=== PATIENT | female | born 1975 | race Caucasian/White ===

== ENCOUNTER → 2017-04-23 | Outpatient (CLI) | payer BC ==
--- NOTE | 2017-04-23 09:04 | MM ---
Reason for exam: screening (asymptomatic). Baseline mammogram. Physical Findings: Nurse Summary: A 1cm nodule in the left breast at 4 o'clock (nurse rm). MG Screening Mammo w CAD Bilateral CC and MLO view(s) were taken. Prior study comparison: March 03, 2004, bilateral diagnostic mammogram. The breast tissue is almost entirely fat. There is no discrete abnormality. No significant new findings when compared with previous films. These results were verbally communicated with the patient and result sheet given to the patient on 04/23/17. ASSESSMENT: Incomplete: need additional imaging evaluation, BI-RAD 0 RECOMMENDATION: Ultrasound of the left breast. Palpable.
--- NOTE | 2017-04-23 09:07 | USB ---
Reason for exam: additional evaluation requested from abnormal screening. US Breast Limited LT Left breast demonstrates no cystic or solid lesion seen. ASSESSMENT: Negative, BI-RAD 1 RECOMMENDATION: Routine screening mammogram of both breasts in 1 year.
== END | disposition home or self-care (01) ==
LOC: RADMAMWWP 07:05
PROVIDERS: ATTEND Family Medicine
DX: Z12.31 Encounter for screening mammogram for malignant neoplasm of breast (principal); R92.8 Other abnormal and inconclusive findings on diagnostic imaging of breast
CPT/HCPCS: 76642; G0202

== ENCOUNTER → 2017-06-08 | Outpatient (CLI) | payer BC ==
--- NOTE | 2017-06-09 09:04 | CONS ---
Reason for the consultation is sleep apnea. A 42-year-old female patient, morbidly obese with no known history of bronchial asthma, coming in for ARABELLA evaluation. Recently, she has been noticed to be very tired and fatigued and she has an [place] score of 16. She is snoring. She is having excessive daytime sleepiness during the day despite averaging around 9 hours of sleep. She goes to bed around midnight, wakes up 9 a.m. in the morning, sometimes takes her more than 30 minutes to an hour to fall asleep. She is waking up very tired and she is having problems with day to day arousals and alertness. She has gained a total of 60 to 80 pounds after she quit smoking approximately 2-1/2 years ago. No chronic pain. No nocturnal heartburn, no nocturnal chest pain. Occasionally, she has coughing jags that wakes her up from sleep. No restlessness in her lower extremities. PAST MEDICAL HISTORY: 1. Asthma. 2. Obesity. 3. Hypertension. 4. Generalized anxiety disorder. 5. Degenerative arthritis. Past surgical history includes tonsillectomy, D&C, tendon surgery on her foot, 2 C-sections and resection of Bartholin glands. Allergies are not known. Outpatient medications list include Zyrtec, ( ), Symbicort 160/4.5 two puffs twice a day, Spiriva inhalation a day. She is also on Lipitor 20 mg p.o. q. daily, Lexapro 20 mg p.o. q. daily, Singular 10 mg p.o. q. day, hydrochlorothiazide 25 mg p.o. q. day, Xanax on a p.r.n. basis, Zosyn 0.25 mg q. day. FAMILY HISTORY: Father has complications of renal failure and he passed, and he also had hypertension. Mother of complications of lung disease including COPD and respiratory failure. No sleep apnea in the family. REVIEW OF SYSTEMS: A 12-point review of systems was done, positive points as mentioned above. HISTORY OF PRESENT ILLNESS: BP is 141/94, pulse 68, respirations 16, temperature 97.6, saturation 95% on room air, weight 367, height is 5, 7, neck size 18-3/4, BMI is 66.6. GENERAL APPEARANCE: Calm, comfortable. HEENT: Short neck, crowing of the posterior pharynx. There is no goiter or neck masses, Mallampati class IV. LUNGS: Diminished at the bases, otherwise clear. Heart sounds are regular rate and rhythm, normal S1, S2, no murmurs. ABDOMEN: Obese, soft, nontender, liver and spleen cannot be palpated. EXTREMITIES: Edema, there is no cyanosis or clubbing. IMPRESSION: 1. Obstructive sleep apnea, suspected clinically under investigation. 2. Chronic bronchial asthma. 3. Morbid obesity, BMI of 56. 4. Hypersomnia, [place] score of 16. 5. Chronic allergic rhinitis. 6. Chronic anxiety. 7. Hypertension. 8. Hyperlipidemia. PLAN: 1. Weight loss. 2. Proceed with screening polysomnogram and decide on treatment accordingly. ABELARDOD
== END ==
LOC: SLEEP 15:09
PROVIDERS: ATTEND Internal Medicine Critical Care Medicine
DX: G47.33 Obstructive sleep apnea (adult) (pediatric) (principal); E66.01 Morbid (severe) obesity due to excess calories; G47.10 Hypersomnia, unspecified; F41.9 Anxiety disorder, unspecified; I10 Essential (primary) hypertension; E78.5 Hyperlipidemia, unspecified; J44.9 Chronic obstructive pulmonary disease, unspecified; Z68.43 Body mass index [BMI] 50.0-59.9, adult; Z79.899 Other long term (current) drug therapy
CPT/HCPCS: 99211

== ENCOUNTER → 2017-11-17 | Outpatient (CLI) | payer BC | END | disposition home or self-care (01) | LOC: LABWHC1 16:11 | PROVIDERS: ATTEND Internal Medicine Critical Care Medicine | DX: J45.909 Unspecified asthma, uncomplicated (principal) | CPT/HCPCS: 36415; 82785; 85008 ==

== ENCOUNTER → 2017-12-07 | Outpatient (CLI) | payer BC ==
--- NOTE | 2017-12-07 20:45 | PN ---
PROGRESS NOTE DATE OF SERVICE: 12/07/2017. HISTORY: This is a patient who is coming in for a compliancy check regarding ARABELLA treatment. The patient has severe symptomatic obstructive sleep apnea with an AHI of 51. The patient was given CPAP therapy. Unfortunately the patient was unable to bring his CPAP machine today with [facility]. However, she claims that she has been using more than 6 hours of CPAP every night and she is benefitting from the treatment and she is waking up much more alert and refreshed during the day. She is on a CPAP pressure of 12 cm of water. I am going to download her compliance data from her machine at a later stage. Otherwise she has no specific complaints. She is using a Simplus full face mask. She is trying to lose weight and she is benefitting from the treatment. PHYSICAL EXAMINATION: VITAL SIGNS: BP is 137/72, pulse 68, respirations 16, temperature 97.6 weight is 385. Saturation 99% on room air. GENERAL: Appears calm and comfortable. HEENT: Head is atraumatic, normocephalic. NECK: Supple. There is no JVD. No goiter or neck masses. Mallampati class 4. LUNGS: Clear to auscultation. HEART: Heart sounds are regular rate and rhythm. Normal S1, S2. No S3, S4. No murmurs. ABDOMEN: Soft, nontender. No organomegaly. EXTREMITIES: No edema. No cyanosis or clubbing. IMPRESSION: 1. Symptomatic obstructive sleep apnea with an AHI of 31, currently on CPAP pressure of 12. The patient is benefiting from the treatment and has no specific complaints. 2. Obesity with a BMI of 57. 3. Chronic hypersomnia, improving. 4. Chronic anxiety. 5. Allergic rhinitis. 6. Hypertension. 7. Hyperlipidemia. PLAN: 1. Proceed with CPAP therapy at same level of pressure. 2. Download compliancy data. 3. Encourage weight loss. 4. No adjustments until compliancy data has been reviewed. 5. See me back in follow up for further recommendations. For now, the patient is benefiting from the treatment and if the compliancy data is appropriate, the patient will be let go, to be seen in a year's time. MMODL / IJN: [id number] /
== END | disposition home or self-care (01) ==
LOC: SLEEP 16:52
PROVIDERS: ATTEND Internal Medicine Critical Care Medicine
DX: G47.33 Obstructive sleep apnea (adult) (pediatric) (principal); E66.9 Obesity, unspecified; F41.9 Anxiety disorder, unspecified; J30.9 Allergic rhinitis, unspecified; I10 Essential (primary) hypertension; E78.5 Hyperlipidemia, unspecified; Z99.89 Dependence on other enabling machines and devices; Z68.43 Body mass index [BMI] 50.0-59.9, adult

== ENCOUNTER → 2018-01-19 | Outpatient (CLI) | payer BC | END | disposition home or self-care (01) | LOC: LABWHC1 09:58 | PROVIDERS: ATTEND Family Medicine | DX: Z01.818 Encounter for other preprocedural examination (principal) | CPT/HCPCS: 36415; 93005 ==

== ENCOUNTER 2018-04-18 10:01 | Emergency (ER) | payer BC ==
[2018-04-18 10:08] VITALS: RESP 18
[2018-04-18] MEDS ORDERED: ASPIRIN 81 MG PO STA (10:36)
[2018-04-18] MEDS ORDERED: IPRATROPIUM-ALBUTEROL 3 ML NEB INHALATION STA (10:36)
--- NOTE | 2018-04-18 10:42 | ED ---
Chest Pain HPI - General Chief Complaint: Chest Pain Stated Complaint: abn labs Time Seen by Provider: 04/18/18 10:16 Source: patient Mode of arrival: wheelchair Limitations: no limitations - History of Present Illness Initial Comments: Patient is a 42-year-old female who presents with a chief complaint of chest pain, fatigue, shortness of breath. Patient states that the symptoms have been going on for several months, gradually getting worse. She was sent to the emergency department by her primary care physician as her symptoms were concerning for cardiac etiology. Patient cannot identify an inciting incident. Aggravating factors include exertion, and lying flat. Alleviating factors are rest. The patient has a significant history of high cholesterol, and asthma. The patient is a family history of early cardiac disease in her mother and father. Her sister had a fatal PA at the age of 58. Timing is constant. - Related Data Home Medications Medication Instructions Recorded Confirmed ALPRAZolam [Xanax] 0.5 mg PO Q8H PRN 02/24/16 04/18/18 Albuterol Nebulized [Ventolin 2.5 mg INHALATION RT-Q6H PRN 02/24/16 04/18/18 Nebulized] Albuterol Sulfate [Ventolin HFA] 2 puff INHALATION RT-Q6H PRN 02/24/16 04/18/18 Aspirin EC [Ecotrin] 325 mg PO HS 02/24/16 04/18/18 Montelukast [Singulair] 10 mg PO HS 02/24/16 04/18/18 buPROPion HCL [Bupropion HCl Sr] 150 mg PO BID 02/24/16 04/18/18 Atorvastatin [Lipitor] 20 mg PO HS 04/18/18 04/18/18 Beclomethasone Dipropionate [Qvar 1 puff INHALATION RT-BID 04/18/18 04/18/18 Redihaler] Budesonide-Formot 160-4.5 Mcg 2 puff INHALATION RT-BID 04/18/18 04/18/18 [Symbicort 160-4.5 Mcg Inhaler] Cetirizine HCl [Zyrtec] 10 mg PO DAILY 04/18/18 04/18/18 Doxazosin [Cardura] 2 mg PO DAILY 04/18/18 04/18/18 Furosemide [Lasix] 20 mg PO DAILY 04/18/18 04/18/18 Omeprazole 20 mg PO DAILY 04/18/18 04/18/18 Tiotropium [place] [Spiriva] 1 cap INHALATION RT-DAILY 04/18/18 04/18/18 Allergies Allergy/AdvReac Type Severity Reaction Status Date / Time No Known Allergies Allergy Verified 04/18/18 11:54 Review of Systems ROS Statement: Those systems with pertinent positive or pertinent negative responses have been documented in the HPI. ROS Other: All systems not noted in ROS Statement are negative. Cardiovascular: Reports: chest pain, dyspnea on exertion Endocrine: Reports: fatigue Past Medical History Past Medical History: Asthma History of Any Multi-Drug Resistant Organisms: None Reported Past Surgical History: Section, Hysterectomy, Orthopedic Surgery, Tonsillectomy Past Psychological History: Anxiety Smoking Status: Former smoker Past Alcohol Use History: None Reported Past Drug Use History: None Reported General Exam Limitations: no limitations General appearance: alert, in no apparent distress Head exam: Present: atraumatic, normocephalic Eye exam: Present: normal appearance ENT exam: Present: normal exam Neck exam: Present: normal inspection Respiratory exam: Present: decreased breath sounds, other (Patient is decreased breath sounds and a bronchospastic cough. There are no wheezes appreciated however exam is limited secondary to body habitus.) Cardiovascular Exam: Present: regular rate, normal rhythm GI/Abdominal exam: Present: soft. Absent: distended, tenderness Rectal exam: Present: deferred Extremities exam: Present: normal inspection, pedal edema (2+ pitting edema b/l ) Back exam: Present: normal inspection Neurological exam: Present: alert, oriented X3 Psychiatric exam: Present: normal affect, normal mood Skin exam: Present: warm, dry, intact Course Vital Signs 04/18/18 04/18/18 04/18/18 10:06 12:20 12:42 Temperature 97.8 F Pulse Rate 55 L 64 61 Respiratory 18 18 Rate Blood Pressure 165/73 145/65 O2 Sat by Pulse 100 97 Oximetry 04/18/18 04/18/18 04/18/18 13:09 13:47 16:53 Temperature 97.5 F L Pulse Rate 79 72 113 H Respiratory 18 18 Rate Blood Pressure 135/61 119/44 O2 Sat by Pulse 94 L 94 L Oximetry 04/18/18 17:36 Temperature 97.5 F L Pulse Rate 113 H Respiratory 18 Rate Blood Pressure 119/44 O2 Sat by Pulse 94 L Oximetry Chest Pain MDM - MDM Patient presents with a chief complaint of chest pain and shortness of breath. On initial evaluation, vital signs are stable, patient is in no acute distress. Patient is perk negative therefore making PE and unlikely diagnosis. History and physical examination concerning for congestive heart failure. Patient will be evaluated with cardiac workup. EKG performed at 10:14 AM shows sinus bradycardia with a rate of 58 bpm. EKG is otherwise unremarkable. Patient given aspirin in the emergency department. 6:20PM Lab evaluation of this patient is unremarkable. troponins are negative x 2, CXR unremarkable. at this time, patient has a heart score of 3 and after shared decision making, the patient would like to follow up outpatient for further work up. the patient was instructed to follow up with primary care in 1 -2 days, or return to the ED if new or concerning symptoms arise. the patient verbalizes understanding. patient left ED in no distress and stable. - PERC Rule Heart Rate < 100: (0) No g: (0) No No Prior History pf DVT/PE: (0) No No Recent Trauma or Surgery: (0) No Hemoptysis: (0) No No Exogenous Estrogen: (0) No No Clinical Signs Suggesting DVT: (0) No Disposition Clinical Impression: Chest pain Disposition: HOME SELF-CARE Condition: Good Instructions: Chest Pain (ED) Is patient prescribed a controlled substance at d/c from ED?: No Referrals: Saulo Gudino DO [Primary Care Provider] - 1-2 days
[2018-04-18 12:21] LABS: Anion Gap 14 mmol/L; Blood Urea Nitrogen 13 mg/dL (7-17); Calcium 9.4 mg/dL (8.4-10.2); Carbon Dioxide 25 mmol/L (22-30); Chloride 104 mmol/L (98-107); Glucose 84 mg/dL (74-99); Potassium 4.1 mmol/L (3.5-5.1); Sodium 143 mmol/L (137-145)
[2018-04-18 12:27] LABS: Basophils % (A) 0 %; Eosinophils # (A) 0.1 k/uL (0-0.7); Eosinophils % (A) 1 %; HCT 34.7 % (34.0-46.0); Hypochromasia Slight; Lymphocytes # (A) 1.5 k/uL (1.0-4.8); Lymphocytes % (A) 20 %; MCH 24.7 pg (25.0-35.0); MCHC 31.7 g/dL (31.0-37.0); Mean Platelet Volume 8.3; Monocytes # (A) 0.3 k/uL (0-1.0); Monocytes % (A) 5 %; Neutrophils # (A) 5.4 k/uL (1.3-7.7); Neutrophils % (A) 73 %; Platelet Count 174 k/uL (150-450); Poikilocytosis Slight; RBC 4.45 m/uL (3.80-5.40); RDW 15.1 % (11.5-15.5); WBC 7.5 k/uL (3.8-10.6)
--- NOTE | 2018-04-18 12:28 | XR ---
EXAMINATION TYPE: XR chest 2V DATE OF EXAM: 04/18/2018 COMPARISON: 11/17/2017 HISTORY: Chest pain, shortness of breath and large 70 edema with history of asthma TECHNIQUE: Frontal and lateral views of the chest are obtained. FINDINGS: There is no focal air space opacity, pleural effusion, or pneumothorax seen. There is mini mal platelike left midlung subsegmental peripheral atelectasis. The cardiac silhouette size is withi n normal limits. The osseous structures are intact. Mild acromioclavicular arthropathy is noted devon aterally. IMPRESSION: Minimal left midlung platelike subsegmental atelectasis with no other acute cardiopulmon elisabet process.
[2018-04-18 13:49] VITALS: TEMP 97.5
[2018-04-18 16:55] VITALS: BP 119/44; PULSE 113
== END 2018-04-18 17:36 | disposition home or self-care (01) ==
LOC: EC 10:01
DX: R07.9 Chest pain, unspecified (principal); R06.02 Shortness of breath; R00.1 Bradycardia, unspecified; R53.83 Other fatigue; R60.0 Localized edema; E78.00 Pure hypercholesterolemia, unspecified; J45.909 Unspecified asthma, uncomplicated; F41.9 Anxiety disorder, unspecified; Z87.891 Personal history of nicotine dependence; Z82.49 Family history of ischemic heart disease and other diseases of the circulatory system; Z79.51 Long term (current) use of inhaled steroids; Z79.82 Long term (current) use of aspirin; Z79.899 Other long term (current) drug therapy
CPT/HCPCS: 36415; 71046; 80048; 83880; 84484; 85025; 93005; 94640; 99285

== ENCOUNTER → 2018-07-28 | Outpatient (CLI) | payer BC ==
[2018-07-28 15:08] VITALS: BP 135/60; PULSE 63; RESP 14; TEMP 99.2; BMI 58.4
--- NOTE | 2018-07-28 15:36 | P.HPBAR ---
Bariatric H&P - History & Physicial H&P Date: 07/28/18 History & Physicial: Visit/CC: bariatric consult (RnY) Patient initial contact: Initial weight: 183.841 kg Initial weight in pounds: 405.30 Height: 5 ft 8 in Initial BMI: 61.6 Last weight: Current weight: 174.361 kg Current weight in pounds: 384.40 Current BMI: 58.4 [place] body weight (based on NIH guidelines): 63.503 kg Excess body weight loss: 7.8% The patient is a 43 year-old F who presents for Bariatric Assessment. HPI: She comes into looking for the gastric bypass. Highest weight is 403 to 405 pounds now a few months ago. Five years ago, she had weighed over 350 pounds. In the past she was smoking and now has quit. She an aunt with severe obesity. She has sleep apnea, and is on Lasix for blood pressure and for swelling in the legs. She has history of high cholesterol. Her gallbladder has been removed. No food allergies. She reports GERD. No stomach or esophageal cancer. No inflammatory bowel disease. She reports lower back pain, hip pain, knee pain including feet. She has chronic lower leg swelling and plantar fasciitis. ABDOMEN: MS: 2+ edema. PLAN: 1. [facility] [place] 2. Food diary journal present 3. Medical weight loss described Past Medical History Past Medical History: Asthma, Hyperlipidemia Additional Past Medical History / Comment(s): 07/28/18 currently seeing box toe flanger stitchdowns for "random, quick stabbing chest pain;" patient states that she believes box toe flanger stitchdowns, Dr. Williamson, is leaning toward believing that these pains are asthma related History of Any Multi-Drug Resistant Organisms: None Reported Past Surgical History: Section, Hysterectomy, Orthopedic Surgery, Tonsillectomy Past Anesthesia/Blood Transfusion Reactions: Motion Sickness, Postoperative Nausea & Vomiting (PONV) Additional Past Anesthesia/Blood Transfusion Reaction / Comm: Patient states she has had 2 episodes of "spinal headaches" following 2 separate epidurals. No history of blood transfusion to date Past Psychological History: Anxiety Smoking Status: Former smoker Past Alcohol Use History: None Reported Past Drug Use History: None Reported - Past Family History Father Family Medical History: Hypertension Additional Family Medical History / Comment(s): at age 67 from hypertensive damage to organs Mother Family Medical History: Hypertension Additional Family Medical History / Comment(s): at age 69 Sister(s) Family Medical History: Myocardial Infarction ([place]) Additional Family Medical History / Comment(s): alcoholism, at age 57 from " maker" heart attack Brother(s) Family Medical History: Coronary Artery Disease (CAD) Additional Family Medical History / Comment(s): alcoholism, drug addiction, carotid artery clogged 100% and 90% at age 58 Surgical - Exam Vital Signs Temp Pulse Resp BP 99.2 F 63 14 135/60 07/28/18 14:48 07/28/18 14:48 07/28/18 14:48 07/28/18 14:48 Bariatric Checklist Checklist: Plan: Checklist: EGD: 1. Hiatal hernia: 2. H. Pylori: HgbA1c: Vitamin D: Smoking: Former smoker Primary care physician referral: marnie Gudino Psychiatry clearance: Cardiology clearance: Sleep study: Diet journal: VTE risk score: VTE risk level: Rehab needs at discharge:
== END ==
LOC: BARWHC3 14:32
PROVIDERS: ATTEND Surgery Plastic and Reconstructive Surgery
DX: K21.9 Gastro-esophageal reflux disease without esophagitis (principal); M54.5 Low back pain; M25.559 Pain in unspecified hip; M25.569 Pain in unspecified knee; R22.40 Localized swelling, mass and lump, unspecified lower limb; M72.2 Plantar fascial fibromatosis
CPT/HCPCS: 99211

== ENCOUNTER 2018-09-20 12:17 | Emergency (ER) | payer BC ==
[2018-09-20] MEDS ORDERED: methylPREDNISolone SOD SUCCI 125 MG/2 ML VIAL IV STA (12:39)
[2018-09-20] MEDS ORDERED: IPRATROPIUM 0.5 MG/2.5 ML NEBU INHALATION STA (12:39)
[2018-09-20] MEDS ORDERED: ALBUTEROL NEBULIZED 2.5 MG/3 ML INHALATION STA (12:39)
--- NOTE | 2018-09-20 12:58 | ED ---
General Adult HPI - General Chief complaint: Shortness of Breath Stated complaint: Asthma attack Time Seen by Provider: 09/20/18 12:35 Source: patient, RN notes reviewed, old records reviewed Mode of arrival: ambulatory Limitations: no limitations - History of Present Illness Initial comments: 43-year-old female with history of asthma presents with 10 days of cough and dyspnea. Patient states she has been on steroids and antibiotics for the past 8 days with no improvement in her symptoms. She does have a long history of asthma and is on multiple inhalers at this time. Symptoms have failed to improve. Denies fever or chills. Cough is dry. She does have anterior chest pain which is worse with cough. - Related Data Home Medications Medication Instructions Recorded Confirmed Montelukast [Singulair] 10 mg PO HS 02/24/16 09/20/18 buPROPion HCL [Bupropion HCl Sr] 150 mg PO BID 02/24/16 09/20/18 Budesonide-Formot 160-4.5 Mcg 2 puff INHALATION RT-BID 04/18/18 09/20/18 [Symbicort 160-4.5 Mcg Inhaler] Doxazosin [Cardura] 2 mg PO DAILY 04/18/18 09/20/18 Furosemide [Lasix] 20 mg PO BID 04/18/18 09/20/18 Omeprazole 20 mg PO DAILY 04/18/18 09/20/18 Tiotropium [place] [Spiriva] 1 cap INHALATION RT-DAILY 04/18/18 09/20/18 Beclomethasone Dipropionate [Qvar 2 puff INHALATION RT-BID 09/20/18 09/20/18 80 mcg] Escitalopram Oxalate [Lexapro] 20 mg PO DAILY 09/20/18 09/20/18 Ibuprofen [Motrin Ib] 800 mg PO BID PRN 09/20/18 09/20/18 Potassium Chloride ER [K-Dur 10] 10 meq PO DAILY 09/20/18 09/20/18 Previous Rx's Medication Instructions Recorded Albuterol Nebulized [Ventolin 2.5 mg INHALATION Q4H #60 nebu 09/20/18 Nebulized] predniSONE 50 mg PO DAILY #5 tab 09/20/18 Allergies Allergy/AdvReac Type Severity Reaction Status Date / Time No Known Allergies Allergy Verified 09/20/18 13:45 Review of Systems ROS Statement: Those systems with pertinent positive or pertinent negative responses have been documented in the HPI. ROS Other: All systems not noted in ROS Statement are negative. Past Medical History Past Medical History: Asthma, Hyperlipidemia Additional Past Medical History / Comment(s): 07/28/18 currently seeing pulp mill operator for "random, quick stabbing chest pain;" patient states that she believes pulp mill operator, Dr. Williamson, is leaning toward believing that these pains are asthma related History of Any Multi-Drug Resistant Organisms: None Reported Past Surgical History: Section, Hysterectomy, Orthopedic Surgery, Tonsillectomy Past Anesthesia/Blood Transfusion Reactions: Motion Sickness, Postoperative Nausea & Vomiting (PONV) Additional Past Anesthesia/Blood Transfusion Reaction / Comment(s): Patient states she has had 2 episodes of "spinal headaches" following 2 separate epidurals. No history of blood transfusion to date Past Psychological History: Anxiety Smoking Status: Former smoker Past Alcohol Use History: None Reported Past Drug Use History: None Reported - Past Family History Father Family Medical History: Hypertension Additional Family Medical History / Comment(s): at age 67 from hypertensive damage to organs Mother Family Medical History: Hypertension Additional Family Medical History / Comment(s): at age 69 Sister(s) Family Medical History: Myocardial Infarction ([place]) Additional Family Medical History / Comment(s): alcoholism, at age 57 from " maker" heart attack Brother(s) Family Medical History: Coronary Artery Disease (CAD) Additional Family Medical History / Comment(s): alcoholism, drug addiction, carotid artery clogged 100% and 90% at age 58 General Exam Limitations: no limitations General appearance: alert, in no apparent distress Head exam: Present: atraumatic, normocephalic Eye exam: Present: normal appearance, PERRL ENT exam: Present: normal exam Neck exam: Present: normal inspection. Absent: tenderness, meningismus Respiratory exam: Present: respiratory distress (Mild), wheezes, prolonged expiratory. Absent: rales, rhonchi Cardiovascular Exam: Present: regular rate, normal rhythm GI/Abdominal exam: Present: soft. Absent: distended, tenderness, guarding Extremities exam: Present: normal inspection, normal capillary refill. Absent: pedal edema, calf tenderness Back exam: Present: normal inspection, full ROM Neurological exam: Present: alert, oriented X3, CN II-XII intact. Absent: motor sensory deficit Psychiatric exam: Present: normal affect, normal mood Skin exam: Present: warm, dry, intact. Absent: cyanosis, diaphoretic Course Vital Signs 09/20/18 09/20/18 09/20/18 12:27 12:48 13:04 Temperature 98 F Pulse Rate 62 63 64 Respiratory 24 Rate Blood Pressure 143/76 O2 Sat by Pulse 95 Oximetry - Reevaluation(s) Reevaluation #1: 09/20/18 14:13 On reevaluation, patient is feeling better, improved air entry. No respiratory distress. EKG Findings - EKG Comments: EKG Findings:: EKG: Normal sinus rhythm, rate is 62, TX interval 1:30, QRS duration 86, QTC 444 no signs of acute ischemia Medical Decision Making - Medical Decision Making 43-year-old female with asthma exacerbation. Patient has been hospitalized on 2 previous occasions, no ICU admissions, no intubations. Mild respiratory distress on initial evaluation. After albuterol, Atrovent, steroids she is feeling better. Chest x-ray clear, no focal pneumonia. Normal CBC, normal CMP. Patient will be started on prednisone, and will continue albuterol nebulized at home. Return with worsening or changing symptoms. - Lab Data Result diagrams: 09/20/18 13:07 09/20/18 13:07 Lab Results 09/20/18 09/20/18 09/20/18 Range/Units 13:07 13:07 13:07 WBC 10.5 (3.8-10.6) k/uL RBC 4.79 (3.80-5.40) m/uL Hgb 11.9 (11.4-16.0) gm/dL Hct 36.3 (34.0-46.0) % MCV 75.8 L (80.0-100.0) fL MCH 24.9 L (25.0-35.0) pg MCHC 32.9 (31.0-37.0) g/dL RDW 15.8 H (11.5-15.5) % Plt Count 397 (150-450) k/uL Neutrophils % 72 % Lymphocytes % 21 % Monocytes % 4 % Eosinophils % 0 % Basophils % 0 % Neutrophils # 7.6 (1.3-7.7) k/uL Lymphocytes # 2.3 (1.0-4.8) k/uL Monocytes # 0.4 (0-1.0) k/uL Eosinophils # 0.0 (0-0.7) k/uL Basophils # 0.0 (0-0.2) k/uL Microcytosis Slight Sodium 140 (137-145) mmol/L Potassium 4.1 (3.5-5.1) mmol/L Chloride 107 (98-107) mmol/L Carbon Dioxide 25 (22-30) mmol/L Anion Gap 8 mmol/L BUN 14 (7-17) mg/dL Creatinine 0.81 (0.52-1.04) mg/dL Est GFR (CKD-EPI)AfAm >90 (>60 ml/min/1.73 sqM) Est GFR (CKD-EPI)NonAf 90 (>60 ml/min/1.73 sqM) Glucose 87 (74-99) mg/dL Calcium 9.3 (8.4-10.2) mg/dL Magnesium 1.8 (1.6-2.3) mg/dL Total Bilirubin 0.3 (0.2-1.3) mg/dL AST 16 (14-36) U/L ALT 15 (9-52) U/L Alkaline Phosphatase 85 (38-126) U/L NT-Pro-B Natriuret Pep 40 pg/mL Total Protein 7.1 (6.3-8.2) g/dL Albumin 3.9 (3.5-5.0) g/dL Disposition Clinical Impression: Asthma with exacerbation Disposition: HOME SELF-CARE Condition: Good Instructions: Asthma (ED) Prescriptions: Albuterol Nebulized [Ventolin Nebulized] 2.5 mg INHALATION Q4H #60 nebu predniSONE 50 mg PO DAILY #5 tab Is patient prescribed a controlled substance at d/c from ED?: No Referrals: Saulo Gudino DO [Primary Care Provider] - 1-2 days Time of Disposition: 14:14
[2018-09-20 13:05] VITALS: PULSE 64
[2018-09-20 13:14] LABS: Basophils % (A) 0 %; Eosinophils % (A) 0 %; HCT 36.3 % (34.0-46.0); HGB 11.9 gm/dL (11.4-16.0); Lymphocytes # (A) 2.3 k/uL (1.0-4.8); Lymphocytes % (A) 21 %; MCH 24.9 pg (25.0-35.0); MCHC 32.9 g/dL (31.0-37.0); MCV 75.8 fL (80.0-100.0); Mean Platelet Volume 6.7; Microcytosis Slight; Monocytes # (A) 0.4 k/uL (0-1.0); Monocytes % (A) 4 %; Neutrophils # (A) 7.6 k/uL (1.3-7.7); Neutrophils % (A) 72 %; Platelet Count 397 k/uL (150-450); RBC 4.79 m/uL (3.80-5.40); RDW 15.8 % (11.5-15.5); WBC 10.5 k/uL (3.8-10.6)
[2018-09-20 13:35] LABS: ALT 15 U/L (9-52); AST 16 U/L (14-36); Albumin 3.9 g/dL (3.5-5.0); Alkaline Phosphatase 85 U/L (38-126); Anion Gap 8 mmol/L; Blood Urea Nitrogen 14 mg/dL (7-17); Calcium 9.3 mg/dL (8.4-10.2); Carbon Dioxide 25 mmol/L (22-30); Chloride 107 mmol/L (98-107); Glucose 87 mg/dL (74-99); Magnesium 1.8 mg/dL (1.6-2.3); Potassium 4.1 mmol/L (3.5-5.1); Sodium 140 mmol/L (137-145); Total Bilirubin 0.3 mg/dL (0.2-1.3); Total Protein 7.1 g/dL (6.3-8.2)
--- NOTE | 2018-09-20 13:52 | XR ---
EXAMINATION TYPE: XR chest 2V DATE OF EXAM: 09/20/2018 COMPARISON: 04/18/2018 INDICATION: Difficulty breathing TECHNIQUE: Frontal and lateral views of the chest are obtained. FINDINGS: The heart size is normal. The pulmonary vasculature is normal. The lungs are clear. IMPRESSION: 1. No acute pulmonary process.
[2018-09-20 14:29] VITALS: BP 132/75; RESP 18; TEMP 97.5
== END 2018-09-20 14:29 | disposition home or self-care (01) ==
LOC: EC 12:17
DX: J45.901 Unspecified asthma with (acute) exacerbation (principal); F41.9 Anxiety disorder, unspecified; Z79.899 Other long term (current) drug therapy; Z79.51 Long term (current) use of inhaled steroids; Z87.891 Personal history of nicotine dependence
CPT/HCPCS: 36415; 94640; 93005; 83880; 80053; 83735; 85025; 71046; 99285; 96374; J2930

== ENCOUNTER 2018-11-28 08:42 | Day surgery (SDC) | payer BC ==
[2018-11-23 15:59] VITALS: BMI 58.5
--- NOTE | 2018-11-27 15:23 | P.GSHP ---
History of Present Illness H&P Date: 11/28/18 CHIEF COMPLAINT: GERD HISTORY OF PRESENT ILLNESS: The patient is a 43-year-old female who presents reports gastroesophageal reflux disease. Upper endoscopy was offered for further evaluation and management. PAST MEDICAL HISTORY: Please see list. PAST SURGICAL HISTORY: Please see list. MEDICATIONS: Please see list. ALLERGIES: Please see list. SOCIAL HISTORY: No illicit drug use FAMILY HISTORY: No reports of Crohn disease or ulcerative colitis. REVIEW OF ORGAN SYSTEMS: CONSTITUTIONAL: No reports of fevers or chills. GI: Denies any blood in stools or constipation. PHYSICAL EXAM: VITAL SIGNS: Stable GENERAL: Well-developed and pleasant in no acute distress. HEENT: No scleral icterus. Extraocular movements grossly intact. Moist buccal mucosa. NECK: Supple without lymphadenopathy. CHEST: Unlabored respirations. Equal bilateral excursions. CARDIOVASCULAR: Regular rate and rhythm. Distal 2+ pulses. ABDOMEN: Soft, nondistended. MUSCULOSKELETAL: No clubbing, cyanosis, or edema. ASSESSMENT: 1. Gastroesophageal reflux disease PLAN: 1. Recommend proceeding with an upper endoscopy Past Medical History Past Medical History: Asthma, GERD/Reflux, Hyperlipidemia, Sleep Apnea/CPAP/ BIPAP Additional Past Medical History / Comment(s): seeing restaurant area director for "random, quick stabbing chest pain;" patient states that she believes restaurant area director, Dr. Williamson, is leaning toward believing that these pains are asthma related, uses cpap,"bladder issues" History of Any Multi-Drug Resistant Organisms: None Reported Past Surgical History: Section, Cholecystectomy, Hysterectomy, Orthopedic Surgery, Tonsillectomy Additional Past Surgical History / Comment(s): plantar faciitis-lengthened tendon, diverticulum removed, D&C, Past Anesthesia/Blood Transfusion Reactions: Motion Sickness, Postoperative Nausea & Vomiting (PONV) Additional Past Anesthesia/Blood Transfusion Reaction / Comment(s): Patient states she has had 2 episodes of "spinal headaches" following 2 separate epidurals. No history of blood transfusion to date Smoking Status: Former smoker - Past Family History Father Family Medical History: Hypertension Additional Family Medical History / Comment(s): at age 67 from hypertensive damage to organs Mother Family Medical History: Hypertension Additional Family Medical History / Comment(s): at age 69 Sister(s) Family Medical History: Myocardial Infarction (CT) Additional Family Medical History / Comment(s): alcoholism, at age 57 from " maker" heart attack Brother(s) Family Medical History: Coronary Artery Disease (CAD) Additional Family Medical History / Comment(s): alcoholism, drug addiction, carotid artery clogged 100% and 90% at age 58 Medications and Allergies Home Medications Medication Instructions Recorded Confirmed Type Montelukast [Singulair] 10 mg PO HS 02/24/16 11/23/18 History buPROPion HCL [Bupropion HCl Sr] 150 mg PO BID 02/24/16 11/23/18 History Budesonide-Formot 160-4.5 Mcg 2 puff INHALATION RT-BID 04/18/18 11/23/18 History [Symbicort 160-4.5 Mcg Inhaler] Doxazosin [Cardura] 2 mg PO DAILY 04/18/18 11/23/18 History Furosemide [Lasix] 20 mg PO BID 04/18/18 11/23/18 History Omeprazole 20 mg PO DAILY 04/18/18 11/23/18 History Tiotropium [place] [Spiriva] 2 puff INHALATION DAILY 04/18/18 11/23/18 History Albuterol Nebulized [Ventolin 2.5 mg INHALATION Q4H #60 nebu 09/20/18 11/23/18 Rx Nebulized] Beclomethasone Dipropionate [Qvar 2 puff INHALATION RT-BID 09/20/18 11/23/18 History 80 mcg] Escitalopram Oxalate [Lexapro] 20 mg PO DAILY 09/20/18 11/23/18 History Ibuprofen [Motrin Ib] 800 mg PO BID PRN 09/20/18 11/23/18 History Potassium Chloride ER [K-Dur 10] 10 meq PO DAILY 09/20/18 11/23/18 History Allergies Allergy/AdvReac Type Severity Reaction Status Date / Time No Known Allergies Allergy Verified 11/23/18 15:46
[~2018-11-28 08:42] MED LIST: LACTATED RINGERS 1,000 ML IV SCH; LIDOCAINE 1% 20 ML VIAL (10MG/ML) FOR IV START INTRADERMA PRN
[2018-11-28 09:04] VITALS: TEMP 97.9
[2018-11-28] MEDS ORDERED: PROPOFOL 10 MG/ML 20 ML VIAL IV ONE (10:21)
[2018-11-28] MEDS ORDERED: fentaNYL (PF) 50 MCG/ML 2 ML AMP ONE (10:21)
[2018-11-28] MEDS ORDERED: LIDOCAINE 1% INJ 10MG/ML (20 ML MDV) ONE (10:21)
[2018-11-28] MEDS ORDERED: MIDAZOLAM 2 MG/2 ML VIAL ONE (10:21)
[2018-11-28] MEDS ORDERED: KETAMINE 10 MG/ML 20 ML VIAL ONE (10:21)
--- NOTE | 2018-11-28 10:31 | P.PCN ---
Date of Procedure: 11/28/18 Description of Procedure: PREOPERATIVE DIAGNOSIS: Gastroesophageal reflux disease. Morbid obesity. POSTOPERATIVE DIAGNOSIS: Morbid obesity. Gastroesophageal reflux disease. OPERATION: Esophagogastroduodenoscopy with biopsies along antrum. SURGEON: Flory Moreno MD ANESTHESIA: MAC. INDICATIONS: The patient is a 43-year-old female who presents with a history of reflux disease. Benefits and risks of the procedure were described. Informed consent was obtained. DESCRIPTION: The patient was brought into the endoscopy suite and laid in the left lateral decubitus position. An Olympus gastroscope was passed along the posterior oropharynx down to the distal esophagus where the squamocolumnar junction was encountered at 40 cm from the incisors. The stomach was entered and no bile reflux was found. Additional findings are listed below. Biopsies with cold forceps were obtained of the antrum. The first through third portion of the duodenum was examined and unremarkable. Retroflexion of the scope confirmed Hill grade 2 lower esophageal valve. The squamocolumnar junction demonstrated LA A grade erosive esophagitis. The stomach was desufflated. The patient tolerated the procedure well. FINDINGS: Squamocolumnar junction 40 cm from the incisors. Diaphragmatic hiatus at 40 cm. Hill grade 2 lower esophageal valve. LA grade A erosive esophagitis. No active duodenitis. Mild gastritis RECOMMENDATIONS: Upper endoscopy as needed. Plan - Discharge Summary New Discharge Prescriptions: No Action buPROPion HCL [Bupropion HCl Sr] 150 mg PO BID Montelukast [Singulair] 10 mg PO HS Budesonide-Formot 160-4.5 Mcg [Symbicort 160-4.5 Mcg Inhaler] 2 puff INHALATION RT-BID Tiotropium [place] [Spiriva] 2 puff INHALATION DAILY Omeprazole 20 mg PO DAILY Furosemide [Lasix] 20 mg PO BID Doxazosin [Cardura] 2 mg PO DAILY Potassium Chloride ER [K-Dur 10] 10 meq PO DAILY Escitalopram Oxalate [Lexapro] 20 mg PO DAILY Beclomethasone Dipropionate [Qvar 80 mcg] 2 puff INHALATION RT-BID Ibuprofen [Motrin Ib] 800 mg PO BID PRN PRN Reason: Pain Albuterol Nebulized [Ventolin Nebulized] 2.5 mg INHALATION Q4H #60 nebu Discharge Medication List Montelukast [Singulair] 10 mg PO HS 02/24/16 [History] buPROPion HCL [Bupropion HCl Sr] 150 mg PO BID 02/24/16 [History] Budesonide-Formot 160-4.5 Mcg [Symbicort 160-4.5 Mcg Inhaler] 2 puff INHALATION RT-BID 04/18/18 [History] Doxazosin [Cardura] 2 mg PO DAILY 04/18/18 [History] Furosemide [Lasix] 20 mg PO BID 04/18/18 [History] Omeprazole 20 mg PO DAILY 04/18/18 [History] Tiotropium [place] [Spiriva] 2 puff INHALATION DAILY 04/18/18 [History] Albuterol Nebulized [Ventolin Nebulized] 2.5 mg INHALATION Q4H #60 nebu [Rx] Beclomethasone Dipropionate [Qvar 80 mcg] 2 puff INHALATION RT-BID 09/20/18 [ History] Escitalopram Oxalate [Lexapro] 20 mg PO DAILY 09/20/18 [History] Ibuprofen [Motrin Ib] 800 mg PO BID PRN 09/20/18 [History] Potassium Chloride ER [K-Dur 10] 10 meq PO DAILY 09/20/18 [History]
[2018-11-28 10:36] VITALS: RESP 16
[2018-11-28 11:00] VITALS: BP 109/51; PULSE 53
== END 2018-11-28 11:29 | disposition home or self-care (01) ==
LOC: ORWHC2ENDO 08:42
PROVIDERS: ATTEND Surgery Plastic and Reconstructive Surgery
DX: K21.0 Gastro-esophageal reflux disease with esophagitis (principal); K29.50 Unspecified chronic gastritis without bleeding; E78.5 Hyperlipidemia, unspecified; G47.30 Sleep apnea, unspecified; G47.33 Obstructive sleep apnea (adult) (pediatric); J45.909 Unspecified asthma, uncomplicated; E66.01 Morbid (severe) obesity due to excess calories; F32.9 Major depressive disorder, single episode, unspecified; Z68.43 Body mass index [BMI] 50.0-59.9, adult; Z99.89 Dependence on other enabling machines and devices; Z79.899 Other long term (current) drug therapy; Z87.891 Personal history of nicotine dependence
CPT/HCPCS: 88305; 43239; J2250; J2001; J3010; J2704

== ENCOUNTER → 2018-12-26 | Outpatient (CLI) | payer BC ==
[2018-12-26 15:12] VITALS: BMI 58.7
== END | disposition home or self-care (01) ==
LOC: BARWHC3 08:51
PROVIDERS: ATTEND Surgery Plastic and Reconstructive Surgery
DX: E66.01 Morbid (severe) obesity due to excess calories (principal)
CPT/HCPCS: 97804

== ENCOUNTER → 2019-01-10 | Outpatient (CLI) | payer BC ==
--- NOTE | 2019-01-10 16:11 | PN ---
PROGRESS NOTE COMPLIANCY CHECK: This is a 43-year-old female patient coming in for an annual check regarding her obstructive sleep apnea treatment. The patient has severe ARABELLA with an AHI of 31, and the patient has been maintained on a CPAP pressure of 12 cm of water. On today's evaluation the patient has been noted to have gained around 30 pounds since her last evaluation. She is still utilizing her CPAP therapy at a pressure of 12 and she is using a medium-sized Simplus full-face mask. She is currently seeking bariatric surgery, including gastric bypass surgery, with Dr. Moreno. Since her last evaluation the patient had a successful hysterectomy. The patient is coming in today for a compliancy check. Based on the compliance data, she is looking great. She is achieving around 7.1 hours of CPAP use per night and CPAP use for more than 4 hours . Her leak is around 12 L/minute. Her AHI while on treatment is down to 1.9 and she has no central apneas. She is waking up alert and awake during the day. Her sleep quality is good while on treatment. Her current Sterling score is 9. REVIEW OF SYSTEMS: Twelve-point review of systems was done. Positive findings were all mentioned above in the history of present illness. There is an interval history of a 30-pound weight gain. No sleepwalking or sleeptalking. No major hypersomnia. No sleep paralysis. No nightmares. She has chronic rhinitis related to allergies. No anxiety. No depression. No claustrophobia. No nighttime awakening for shortness of breath, chest tightness or any other reasons. PHYSICAL EXAMINATION: BP 144/68, pulse 65, respirations 18, temperature 97.7, saturation 98% on room air. Sterling score is 9. Height is 67 inches, weight 395 pounds. GENERAL APPEARANCE: Obese, calm, comfortable. Head is atraumatic, normocephalic. Neck is short, supple. Mallampati class IV. There is no goiter or neck mass. LUNGS: Diminished breath sounds; otherwise clear. Heart sounds are regular rate and rhythm. Normal S1, S2. No S3, S4. No murmurs. ABDOMEN: Soft, nontender. No organomegaly. EXTREMITIES: No edema. No cyanosis or clubbing. NEUROLOGIC: Alert and oriented x3. No focal neurological deficits. PSYCHIATRIC: Negative for anxiety or depression. IMPRESSION: 1. Severe obstructive sleep apnea, apnea/hypopnea index of 31, currently on CPAP with a pressure of 12 cm of water. The patient continues to be successfully treated without any major hypersomnia or sleepiness. Sterling Score is 9. 2. Morbid obesity with body mass index of 61.8 with an interval 30-pound weight gain. 3. Hypersomnia, recovered. Sterling score is down to 9. 4. Chronic rhinitis. 5. Chronic anxiety. 6. Hypertension. 7. Hyperlipidemia. PLAN: Despite her weight gain, the patient's treatment is successful. Continue CPAP therapy at the same level of pressure. Renew the CPAP supplies, tubing, filters etc. Encourage weight loss. The patient is being considered for bariatric surgery. She was advised to take her CPAP unit to the hospital on the day of surgery and use it postoperatively. No need for any further adjustments. See me back in a year's time, earlier if needed. [id number] / RACHELN: [id number] /
== END | disposition home or self-care (01) ==
LOC: SLEEP 13:36
PROVIDERS: ATTEND Internal Medicine Critical Care Medicine
DX: G47.33 Obstructive sleep apnea (adult) (pediatric) (principal); J31.0 Chronic rhinitis; E66.01 Morbid (severe) obesity due to excess calories; F41.9 Anxiety disorder, unspecified; I10 Essential (primary) hypertension; E78.5 Hyperlipidemia, unspecified; Z98.890 Other specified postprocedural states; Z99.89 Dependence on other enabling machines and devices; Z68.44 Body mass index [BMI] 60.0-69.9, adult; Z90.710 Acquired absence of both cervix and uterus

== ENCOUNTER → 2019-02-02 | Outpatient (CLI) | payer BC ==
--- NOTE | 2019-02-02 16:56 | FL ---
EXAMINATION: Cervical and Thoracic Esophagram DATE OF EXAM: 02/02/2019 CLINICAL INDICATION: 43-year-old female with dysphagia recently with water during preparation for bar iatric surgery. Globus sensation. COMPARISON: None Total Fluoroscopy Time: 1.56 minutes. Total images: 36. FINDINGS: The swallowing mechanism is normal. There is mild anterior endplate spondylosis at C5-C6 which minima lly impresses onto the posterior wall of the upper cervical esophagus. Otherwise, the hypopharyngeal anatomy is preserved. The cervical and thoracic portions have a normal course and caliber. There is mild delay in clearance of contrast from the esophagus when the patient is supine but no significant tertiary waves are iden tified. The mucosa is normal and no persistent filling defect is encountered. There is a small hiatal hernia. No gastroesophageal reflux is identified during the course of the markell dy. IMPRESSION: 1. Small hiatal hernia. No gastroesophageal reflux seen during the course of the exam. 2. In the cervical esophagus, there is mild anterior endplate spondylosis at C5-C6 causing minimal po sterior impression onto the upper cervical esophagus. No obstruction or other specific abnormality se en.
== END ==
LOC: RADFLWHC 08:38
PROVIDERS: ATTEND Family Medicine
DX: K44.9 Diaphragmatic hernia without obstruction or gangrene (principal); M47.812 Spondylosis without myelopathy or radiculopathy, cervical region
CPT/HCPCS: 74220

== ENCOUNTER → 2019-03-15 | Outpatient (CLI) | payer BC ==
[2019-03-15 15:37] VITALS: BP 158/83; PULSE 63; TEMP 98; BMI 56.1
--- NOTE | 2019-03-15 16:51 | P.PN ---
Subjective Progress Note Date: 03/15/19 DATE OF SERVICE: 03/15/2019 CHIEF COMPLAINT: Morbid obesity HISTORY OF PRESENT ILLNESS: Kenyatta Reed is a 44-year-old female who is looking into the gastric bypass. As a result of her obesity, she has developed obstructive sleep apnea, bilateral lower extremity edema, hypercholesterolemia. She reports gastroesophageal reflux disease. She has completed medical supervised weight loss including medical and cardiac risk assessment. At height of 5 feet 8 inches, her ideal body weight is 163 pounds. Her highest weight was 405 pounds. She comes in 368 pounds from 384 pounds. She has lost 16 pounds in 8 months. Her body mass index highest was 61.7. Today her BMI is 56.1. She is 205 pounds overweight. PAST MEDICAL HISTORY: 1. Morbid obesity due to excess calories 2. Body mass index of 61.7, initial 3. Osteoarthritis of the knees. 4. Osteoarthritis of the hips. 5. Osteoarthritis of the lower back. 6. Obstructive sleep apnea. 7. Hypertensive heart disease. 8. Bilateral lower extremities swelling 9. Plantar fasciitis 10. Gastroesophageal reflux disease 11. Asthma 12. Hyperlipidemia 13. Anxiety disorder 14. Chronic obstructive pulmonary disorder 15. Congestive heart failure 16. Depressive disorder PAST SURGICAL HISTORY: 1. section 2. Hysterectomy 3. Tonsillectomy HOME MEDICATIONS: Home Medications Medication Instructions Recorded Confirmed Montelukast [Singulair] 10 mg PO HS 02/24/16 04/20/19 Budesonide-Formot 160-4.5 Mcg 2 puff INHALATION RT-BID 04/18/18 04/20/19 [Symbicort 160-4.5 Mcg Inhaler] Tiotropium [place] [Spiriva] 2 puff INHALATION RT-DAILY 04/18/18 04/20/19 Beclomethasone Dipropionate [Qvar 2 puff INHALATION RT-BID 09/20/18 04/20/19 80 mcg] FLUoxetine HCL [PROzac] 20 mg PO QAM 03/13/19 04/20/19 Mirabegron [Myrbetriq] 50 mg PO DAILY 03/13/19 04/20/19 buPROPion HCL [Wellbutrin SR] 150 mg PO BID 03/13/19 04/20/19 Previous Rx's Medication Instructions Recorded Bisacodyl [Dulcolax] 5 mg PO DAILY PRN #10 tablet. 03/21/19 HYDROcodone/APAP 7.5-325MG [[place] 1 tab PO Q4H PRN #18 tab 03/22/19 7.5-325] Omeprazole 40 mg PO DAILY #90 capsule. 03/22/19 Polyethylene Glycol 3350 [Miralax] 17 gm PO DAILY #30 packet 04/19/19 ALLERGIES: Denies. SOCIAL HISTORY: Past tobacco use. FAMILY HISTORY: No family history of ulcerative colitis disease or Crohn's disease. Family history of morbid obesity. No lupus in the family. No reports of stomach or esophageal cancer. Family history of diabetes type 2. REVIEW OF ORGAN SYSTEMS: CONSTITUTIONAL: At height of 5 feet 8 inches, her ideal body weight is 163 pounds. Her highest weight was 405 pounds. Her body mass index highest was 61.7. Today her BMI is 56.1. She is 205 pounds overweight. HEENT: Denies any active troubles with vision or hearing. No troubles with swallowing. ENDOCRINE: No diabetes. No hypothyroidism. CARDIOVASCULAR: No reports of palpitations or heart attacks or chest pain. RESPIRATORY: Has daytime somnolence. No asthma. GI: Denies any bright red blood per rectum. No diarrhea or constipation. Has gastroesophageal reflux disease. MUSCULOSKELETAL: Has lower back pain and joint pain. Has osteoarthritis of the knees. History of bilateral lower extremity edema. NEURO: No headaches. No seizure disorders. PSYCH: Has depression. No suicidal ideation. RHEUMATOLOGIC: No lupus. No rheumatoid arthritis. HEMATOLOGIC: Denies any abnormal bleeding or bruising. No personal history of DVTs. SKIN: No rash. No skin cancer. PHYSICAL EXAM: VITAL SIGNS: Height 5 foot 8 inches, weight 368 pounds. BMI 56.1 Vital Signs Temp 98 F 03/15/19 15:35 Pulse 63 03/15/19 15:35 Resp BP 158/83 03/15/19 15:35 Pulse Ox GENERAL: Well-developed in no acute distress. HEENT: No scleral icterus. Extraocular movements grossly intact. Hears conversational speech. No nasal drainage. NECK: Supple without lymphadenopathy. CHEST: Nonlabored respirations with equal bilateral excursions. CARDIOVASCULAR: Regular rate and regular rhythm. Distal 2+ pulses. ABDOMEN: Obese, soft, nontender, nondistended. MUSCULOSKELETAL: No clubbing, cyanosis. Gross strength 5/5 distal lower extremities. NEURO: No focal or lateralizing signs. Cranial nerves 2 through 12 grossly with in normal limits. PSYCH: Appropriate affect. Alert and oriented to person, place and time. SKIN: Good skin turgor. Well perfused. ASSESSMENT: 1. Morbid obesity due to excess calories 2. Body mass index of 61.7, initial to 56.1 3. Osteoarthritis of the knees. 4. Osteoarthritis of the hips. 5. Osteoarthritis of the lower back. 6. Obstructive sleep apnea. 7. Hypertensive heart disease. 8. Bilateral lower extremities swelling 9. Plantar fasciitis 10. Gastroesophageal reflux disease 11. Asthma 12. Hyperlipidemia 13. Anxiety disorder 14. Chronic obstructive pulmonary disorder 15. Congestive heart failure 16. Depressive disorder PLAN: 1. Bariatric options between a sleeve, band and a Parker-en-Y gastric bypass were reviewed in detail. The patient elected for a gastric bypass. Robotic assisted approach described. 2. The [place] [facility] Data was also reviewed with benefits and risks as described. 3. An 8 page second-generation bariatric consent form was reviewed in detail including potential of bleeding, infection, leaks, adequate weight loss, nutritional deficiencies which the patient demonstrated understanding of the risks. 4. A 2 week high-protein low caloric 800 kcal diet described to address hepatomegaly. 5. Preoperative labs including complete metabolic panel and CBC with type and screen recommended. 6. DVT prophylaxis per [place] [facility]. 7. Antibiotic prophylaxis. 8. Inpatient hospitalization anticipated for more than 2 nights. 9. All questions and concerns were addressed with the patient. Objective - Vital Signs Vital signs: Vital Signs Temp 98 F 03/15/19 15:35 Pulse 63 03/15/19 15:35 Resp BP 158/83 03/15/19 15:35 Pulse Ox Intake & Output 03/14/19 03/15/19 03/15/19 18:59 06:59 18:59 Weight 167.376 kg
== END | disposition home or self-care (01) ==
LOC: BARWHC3 14:43
PROVIDERS: ATTEND Surgery Plastic and Reconstructive Surgery
DX: E66.01 Morbid (severe) obesity due to excess calories (principal); M17.0 Bilateral primary osteoarthritis of knee; M16.0 Bilateral primary osteoarthritis of hip; M47.816 Spondylosis without myelopathy or radiculopathy, lumbar region; G47.33 Obstructive sleep apnea (adult) (pediatric); I11.0 Hypertensive heart disease with heart failure; I50.9 Heart failure, unspecified; R60.0 Localized edema; M72.2 Plantar fascial fibromatosis; K21.9 Gastro-esophageal reflux disease without esophagitis; E78.5 Hyperlipidemia, unspecified; F41.9 Anxiety disorder, unspecified; J44.9 Chronic obstructive pulmonary disease, unspecified; F32.9 Major depressive disorder, single episode, unspecified; Z68.44 Body mass index [BMI] 60.0-69.9, adult; Z87.891 Personal history of nicotine dependence; Z79.51 Long term (current) use of inhaled steroids; Z79.899 Other long term (current) drug therapy
CPT/HCPCS: 99211

== ENCOUNTER → 2019-03-15 | Outpatient (CLI) | payer BC ==
[2019-03-15 11:21] LABS: Anisocytosis Slight; HCT 40.7 % (34.0-46.0); HGB 13.3 gm/dL (11.4-16.0); MCH 26.3 pg (25.0-35.0); MCHC 32.7 g/dL (31.0-37.0); MCV 80.4 fL (80.0-100.0); Mean Platelet Volume 7.2; Platelet Count 452 k/uL (150-450); RBC 5.06 m/uL (3.80-5.40); RDW 17.1 % (11.5-15.5); WBC 9.3 k/uL (3.8-10.6)
[2019-03-15 11:52] LABS: ALT 35 U/L (9-52); AST 36 U/L (14-36); Albumin 4.2 g/dL (3.5-5.0); Alkaline Phosphatase 96 U/L (38-126); Anion Gap 10 mmol/L; Blood Urea Nitrogen 14 mg/dL (7-17); Calcium 9.7 mg/dL (8.4-10.2); Carbon Dioxide 26 mmol/L (22-30); Chloride 102 mmol/L (98-107); Cholesterol 185 mg/dL (<200); Glucose 85 mg/dL (74-99); HDL Cholesterol 58 mg/dL (40-60); LDL Cholesterol,Calculated 108 mg/dL (0-99); Potassium 4.1 mmol/L (3.5-5.1); Sodium 138 mmol/L (137-145); Total Bilirubin 0.6 mg/dL (0.2-1.3); Total Protein 7.2 g/dL (6.3-8.2); Triglycerides 95 mg/dL (<150)
[2019-03-15 18:21] LABS: Iron Saturation 10.89 (12.00-45.00)
[2019-03-15 18:30] LABS: Vitamin D 25 Hydroxy 19.4 ng/mL (30.0-100.0)
[2019-03-15 19:06] LABS: Folate, Serum 11.2 ng/mL
[2019-03-15 20:43] LABS: Hemoglobin A1C 5.5 % (4.0-6.0)
== END ==
LOC: LABPAT 09:58
PROVIDERS: ATTEND Surgery Plastic and Reconstructive Surgery
DX: Z01.818 Encounter for other preprocedural examination (principal); E66.01 Morbid (severe) obesity due to excess calories; E88.81 Metabolic syndrome and other insulin resistance; E44.0 Moderate protein-calorie malnutrition; E55.9 Vitamin D deficiency, unspecified; I11.9 Hypertensive heart disease without heart failure; G47.30 Sleep apnea, unspecified; Z01.812 Encounter for preprocedural laboratory examination; Z68.43 Body mass index [BMI] 50.0-59.9, adult
CPT/HCPCS: 36415; 80053; 80061; 82306; 82607; 82728; 82746; 83036; 83540; 83550; 84425; 84443; 85027; 93005

== ENCOUNTER 2019-03-20 05:50 | Inpatient (IN) | payer BC ==
[~2019-03-20 05:50] MED LIST changes: +DEXAMETHASONE SOD PHOSPHATE 10 MG/ML 1 ML VIAL IV ONE; +HYDROmorphone 0.5 MG/0.5 ML SYRINGE IVP PRN; -LACTATED RINGERS 1,000 ML IV SCH; +MIDAZOLAM (PF) 2 MG/2 ML VIAL IV PRN; +ceFAZolin 3 GM in SODIUM CHLORIDE 0.9% 100 ML IVPB ONE; +fentaNYL (PF) 50 MCG/ML 2 ML AMP IV PRN
[2019-03-20] MEDS ORDERED: SCOPOLAMINE 1.5MG/72HR PATCH TRANSDERM STA (06:02)
[2019-03-20] MEDS ORDERED: CHLORHEXIDINE GLUCONATE 15 ML CUP MUCOUS MEM ONE ×2 (06:02→07:00)
--- NOTE | 2019-03-20 06:08 | P.GSHP ---
History of Present Illness H&P Date: 03/20/19 DATE OF SERVICE: 03/20/2019 CHIEF COMPLAINT: Morbid obesity HISTORY OF PRESENT ILLNESS: Kenyatta Reed is a 43-year-old female who is looking into the gastric bypass. Her highest weight is 405 pounds a few months ago. Five years ago, she had weighed over 350 pounds. In the past she was smoking and now has quit. She has an aunt with severe obesity. She has sleep apnea and is on Lasix for blood pressure and for swelling in the legs. She has history of high cholesterol. Her gallbladder has been removed. No reports of food allergies. She reports has gastroesophageal reflux disease. No stomach or esophageal cancer. No inflammatory bowel disease. She reports lower back pain, hip pain, knee pain including feet. She has chronic lower leg swelling and plantar fasciitis. At height of 5 feet 8 inches, her ideal body weight is 163 pounds. She comes in 388 pounds. Her body mass index highest was 61.7. Today her BMI is 59.1. She is 225 pounds overweight. PAST MEDICAL HISTORY: 1. Morbid obesity due to excess calories 2. Body mass index of 61.7, initial 3. Osteoarthritis of the knees. 4. Osteoarthritis of the hips. 5. Osteoarthritis of the lower back. 6. Obstructive sleep apnea. 7. Hypertensive heart disease. 8. Bilateral lower extremities swelling 9. Plantar fasciitis 10. Gastroesophageal reflux disease 11. Asthma 12. Hyperlipidemia 13. Anxiety disorder 14. Chronic obstructive pulmonary disorder 15. Congestive heart failure 16. Depressive disorder PAST SURGICAL HISTORY: 1. section 2. Hysterectomy 3. Tonsillectomy HOME MEDICATIONS: Home Medications Medication Instructions Recorded Confirmed Type Montelukast [Singulair] 10 mg PO HS 02/24/16 09/20/18 History buPROPion HCL [Bupropion HCl Sr] 150 mg PO BID 02/24/16 09/20/18 History Budesonide-Formot 160-4.5 Mcg 2 puff INHALATION RT-BID 04/18/18 09/20/18 History [Symbicort 160-4.5 Mcg Inhaler] Doxazosin [Cardura] 2 mg PO DAILY 04/18/18 09/20/18 History Furosemide [Lasix] 20 mg PO BID 04/18/18 09/20/18 History Omeprazole 20 mg PO DAILY 04/18/18 09/20/18 History Tiotropium [place] [Spiriva] 1 cap INHALATION RT-DAILY 04/18/18 09/20/18 History Albuterol Nebulized [Ventolin 2.5 mg INHALATION Q4H #60 nebu 09/20/18 Rx Nebulized] Beclomethasone Dipropionate [Qvar 2 puff INHALATION RT-BID 09/20/18 09/20/18 History 80 mcg] Escitalopram Oxalate [Lexapro] 20 mg PO DAILY 09/20/18 09/20/18 History Ibuprofen [Motrin Ib] 800 mg PO BID PRN 09/20/18 09/20/18 History Potassium Chloride ER [K-Dur 10] 10 meq PO DAILY 09/20/18 09/20/18 History predniSONE 50 mg PO DAILY #5 tab 09/20/18 Rx ALLERGIES: Denies. SOCIAL HISTORY: Past tobacco use. FAMILY HISTORY: No family history of ulcerative colitis disease or Crohn's disease. Family history of morbid obesity. No lupus in the family. No reports of stomach or esophageal cancer. Family history of diabetes type 2. REVIEW OF ORGAN SYSTEMS: CONSTITUTIONAL: At height of 5 feet 8 inches, her ideal body weight is 163 pounds. She comes in 384 pounds. Her body mass index highest was 61.7. Today her BMI is 58.4. She is 221 pounds overweight. HEENT: Denies any active troubles with vision or hearing. No troubles with swallowing. ENDOCRINE: No diabetes. No hypothyroidism. CARDIOVASCULAR: No reports of palpitations or heart attacks or chest pain. RESPIRATORY: Has daytime somnolence. No asthma. GI: Denies any bright red blood per rectum. No diarrhea or constipation. MUSCULOSKELETAL: Has lower back pain and joint pain. Has osteoarthritis of the knees. History of bilateral lower extremity edema. NEURO: No headaches. No seizure disorders. PSYCH: Has depression. No suicidal ideation. RHEUMATOLOGIC: No lupus. No rheumatoid arthritis. HEMATOLOGIC: Denies any abnormal bleeding or bruising. No personal history of DVTs. SKIN: No rash. No skin cancer. PHYSICAL EXAM: VITAL SIGNS: Height 5 foot 8 inches, weight 388 pounds. BMI 59.1 GENERAL: Well-developed in no acute distress. HEENT: No scleral icterus. Extraocular movements grossly intact. Hears conversational speech. No nasal drainage. NECK: Supple without lymphadenopathy. CHEST: Nonlabored respirations with equal bilateral excursions. CARDIOVASCULAR: Regular rate and regular rhythm. Distal 2+ pulses. ABDOMEN: Obese, soft, nontender, nondistended. MUSCULOSKELETAL: No clubbing, cyanosis. Gross strength 5/5 distal lower extremities. 2+ lower extremity edema NEURO: No focal or lateralizing signs. Cranial nerves 2 through 12 grossly within normal limits. PSYCH: Appropriate affect. Alert and oriented to person, place and time. SKIN: Good skin turgor. Well perfused. ASSESSMENT: 1. Morbid obesity due to excess calories 2. Body mass index of 61.7, initial 3. Osteoarthritis of the knees. 4. Osteoarthritis of the hips. 5. Osteoarthritis of the lower back. 6. Obstructive sleep apnea. 7. Hypertensive heart disease. 8. Bilateral lower extremities swelling 9. Plantar fasciitis 10. Gastroesophageal reflux disease 11. Asthma 12. Hyperlipidemia 13. Anxiety disorder 14. Chronic obstructive pulmonary disorder 15. Congestive heart failure 16. Depressive disorder PLAN: 1. Bariatric options between a sleeve, band and a Parker-en-Y gastric bypass were reviewed in detail. The patient elected for a gastric bypass. Robotic assisted approach described. 2. The [place] [facility] Data was also reviewed with benefits and risks as described. 3. An 8 page second-generation bariatric consent form was reviewed in detail including potential of bleeding, infection, leaks, adequate weight loss, nutritional deficiencies which the patient demonstrated understanding of the risks. 4. A 2 week high-protein low caloric 800 kcal diet described to address hepatomegaly. 5. Preoperative labs including complete metabolic panel and CBC with type and screen recommended. 6. DVT prophylaxis per [place] [facility]. 7. Antibiotic prophylaxis. 8. Inpatient hospitalization anticipated for more than 2 nights. 9. All questions and concerns were addressed with the patient. Past Medical History Past Medical History: Asthma, GERD/Reflux, Hyperlipidemia, Sleep Apnea/CPAP/BIPAP Additional Past Medical History / Comment(s): seeing seconds inspector for "random, quick stabbing chest pain;" patient states that she believes seconds inspector, Dr. Williamson, is leaning toward believing that these pains are asthma related, uses cpap,"bladder issues" History of Any Multi-Drug Resistant Organisms: None Reported Past Surgical History: Section, Cholecystectomy, Hysterectomy, Orthopedic Surgery, Tonsillectomy Additional Past Surgical History / Comment(s): plantar faciitis-lengthened tendon, diverticulum removed, D&C, Past Anesthesia/Blood Transfusion Reactions: Motion Sickness, Postoperative Nausea & Vomiting (PONV) Additional Past Anesthesia/Blood Transfusion Reaction / Comment(s): Patient states she has had 2 episodes of "spinal headaches" following 2 separate epidurals. No history of blood transfusion to date Past Psychological History: Anxiety Smoking Status: Former smoker Past Alcohol Use History: None Reported Additional Past Alcohol Use History / Comment(s): smoked 30 years 1 ppd quit 2014 Past Drug Use History: None Reported - Past Family History Father Family Medical History: Hypertension, Renal Disease Additional Family Medical History / Comment(s): at age 67 from hypertensive damage to organs Mother Family Medical History: Hypertension Additional Family Medical History / Comment(s): at age 69. Sister(s) Family Medical History: Myocardial Infarction ([place]) Additional Family Medical History / Comment(s): Alcoholism, at age 57 from " maker" heart attack. Brother(s) Family Medical History: Coronary Artery Disease (CAD) Additional Family Medical History / Comment(s): Alcoholism, drug addiction, carotid artery clogged 100% and 90% at age 58. Medications and Allergies Home Medications Medication Instructions Recorded Confirmed Type Montelukast [Singulair] 10 mg PO HS 02/24/16 03/15/19 History Budesonide-Formot 160-4.5 Mcg 2 puff INHALATION RT-BID 04/18/18 03/15/19 History [Symbicort 160-4.5 Mcg Inhaler] Furosemide [Lasix] 40 mg PO BID 04/18/18 03/15/19 History Tiotropium [place] [Spiriva] 2 puff INHALATION DAILY 04/18/18 03/15/19 History Beclomethasone Dipropionate [Qvar 2 puff INHALATION RT-BID 09/20/18 03/15/19 History 80 mcg] Potassium Chloride ER [K-Dur 10] 10 meq PO BID 09/20/18 03/15/19 History ALPRAZolam [Xanax] 0.25 mg PO TID PRN 03/13/19 03/15/19 History Albuterol Nebulized [Ventolin 2.5 mg INHALATION Q4H PRN 03/13/19 03/15/19 History Nebulized] Docusate Sodium [Dok] 100 mg PO BID 03/13/19 03/15/19 History FLUoxetine HCL [PROzac] 20 mg PO QAM 03/13/19 03/15/19 History Mirabegron [Myrbetriq] 50 mg PO DAILY 03/13/19 03/15/19 History buPROPion HCL [Wellbutrin SR] 150 mg PO BID 03/13/19 03/15/19 History Allergies Allergy/AdvReac Type Severity Reaction Status Date / Time No Known Allergies Allergy Verified 03/15/19 15:37
[2019-03-20] MEDS: ONDANSETRON 4 MG/2 ML VIAL IVP ONE ×2 (06:34→12:29)
[2019-03-20] MEDS: LACTATED RINGERS 1,000 ML IV SCH ×2 (06:38→12:18)
[2019-03-20] MEDS ORDERED: PANTOPRAZOLE 40 MG/10 ML VIAL IV ONE (07:00)
[2019-03-20] MEDS ORDERED: ENOXAPARIN 40 MG/0.4 ML SYRINGE SQ ONE (07:00)
[2019-03-20] MEDS ORDERED: MIDAZOLAM 2 MG/2 ML VIAL ONE (07:25)
[2019-03-20] MEDS ORDERED: HYDROmorphone (PF) 1 MG/ML ONE (07:25)
[2019-03-20] MEDS ORDERED: PROPOFOL 10 MG/ML 20 ML VIAL IV ONE (07:25)
[2019-03-20] MEDS ORDERED: fentaNYL (PF) 50 MCG/ML 2 ML AMP ONE (07:25)
[2019-03-20] MEDS ORDERED: LIDOCAINE 1% INJ 10MG/ML (20 ML MDV) ONE (07:25)
[2019-03-20] MEDS ORDERED: ROCURONIUM BROMIDE 10 MG/ML 10 ML VIAL IV ONE (07:25)
[2019-03-20] MEDS ORDERED: NEOSTIGMINE 1 MG/ML 10 ML VIAL ONE (07:25)
[2019-03-20] MEDS ORDERED: GLYCOPYRROLATE 0.2 MG/ML 2 ML VIAL ONE (07:25)
[2019-03-20] MEDS ORDERED: SUCCINYLCHOLINE CHLORIDE VIAL 200 MG/10 ML VIAL IV ONE (07:25)
[2019-03-20] MEDS ORDERED: BUPIVACAINE-EPI 0.5%-1:200,000 10 ML VIAL SQ ONE (08:16)
[2019-03-20] MEDS ORDERED: LACTATED RINGERS 1,000 ML IV ONE ×2 (08:37→09:59)
[2019-03-20] MEDS ORDERED: diphenhydrAMINE 50 MG/ML 1 ML VIAL IVP PRN (11:12)
[2019-03-20] MEDS ORDERED: NALOXONE 0.4 MG/ML 1 ML VIAL IV PRN (11:12)
[2019-03-20] MEDS ORDERED: ACETAMINOPHEN IV (For NPO) 1,000 MG in EMPTY BAG 1 BAG IVPB ONE (12:00)
--- NOTE | 2019-03-20 12:08 | P.OP ---
Date of Procedure: 03/20/19 Description of Procedure: SURGEON: MERYL CASTANON MD PREOPERATIVE DIAGNOSES: 1. Morbid obesity due to excess calories 2. Body mass index of 61.7, initial 3. Osteoarthritis of the knees. 4. Osteoarthritis of the hips. 5. Osteoarthritis of the lower back. 6. Obstructive sleep apnea. 7. Hypertensive heart disease. 8. Bilateral lower extremities swelling 9. Plantar fasciitis 10. Gastroesophageal reflux disease 11. Asthma 12. Hyperlipidemia 13. Anxiety disorder 14. Chronic obstructive pulmonary disorder 15. Congestive heart failure 16. Depressive disorder POSTOPERATIVE DIAGNOSES: 1. Morbid obesity due to excess calories 2. Body mass index of 61.7, initial 3. Osteoarthritis of the knees. 4. Osteoarthritis of the hips. 5. Osteoarthritis of the lower back. 6. Obstructive sleep apnea. 7. Hypertensive heart disease. 8. Bilateral lower extremities swelling 9. Plantar fasciitis 10. Gastroesophageal reflux disease 11. Asthma 12. Hyperlipidemia 13. Anxiety disorder 14. Chronic obstructive pulmonary disorder 15. Congestive heart failure 16. Depressive disorder OPERATION: 1. Robotic assisted da Ray Xi laparoscopic Allie-en-Y gastric bypass, 100 cm antecolic antegastric Allie limb, with 25 mm EEA. 2. Intraoperative esophagogastrojejunoscopy. ANESTHESIA: GETA and local ESTIMATED BLOOD LOSS: 10 mL SPECIMENS REMOVED: None. COMPLICATIONS: NONE. INDICATIONS: Kenyatta Reed is a 43-year-old female who is looking into the gastric bypass. Her highest weight is 405 pounds a few months ago. Five years ago, she had weighed over 350 pounds. She has sleep apnea and is on Lasix for blood pressure and for swelling in the legs. She has history of high cholesterol. Her gallbladder has been removed. No reports of food allergies. She reports has gastroesophageal reflux disease. No stomach or esophageal cancer. No inflammatory bowel disease. She reports lower back pain, hip pain, knee pain including feet. She has chronic lower leg swelling and plantar fasciitis. At height of 5 feet 8 inches, her ideal body weight is 163 pounds. She comes in 388 pounds. Her body mass index highest was 61.7. Today her BMI is 59.1. She is 225 pounds overweight. A second-generation bariatric consent form was described in detail including the possibility of protein malnutrition, leaks, gastrojejunal stricture, venous thrombosis, need for further surgery for which she demonstrated understanding. Benefits and risks of the procedure were described at length. Informed consent was obtained. DESCRIPTION: The patient was brought into the operating room theater. She was placed supine. She had received Lovenox subcutaneously for DVT prophylaxis. Additionally she Peridex oral solution as an oral decontaminant was placed per anesthesia. After general induction, the abdomen was prepped and draped in standard sterile fashion. Ioban draping was placed along the abdomen. A robotic da Ray Xi system was prepped and primed. The xiphoid to umbilicus was measured of 17.5 cm. Incisions were proposed at 15 cm from the xiphoid. Proposed port sites were marked with indelible marker along the anterior axillary line bilaterally, mid clavicular line bilaterally with each port marked 10 cm from each other. The robotic stapler port was marked for the right midclavicular line including along the left midclavicular line. A 5 mm 0 degrees laparoscopic trocar entry was performed along the left upper quadrant. The abdomen was insufflated to 15 mmHg pressure, which she tolerated well. Diagnostic laparoscopy demonstrated no injury to bowel, viscera, or mesentery. The liver was smooth and unremarkable. An 8 mm camera port was placed left lateral to the umbilicus at the epigastrium, 15 cm distal to the xiphoid. Next, 12-mm robot stapler port was placed along the right mid abdomen. An 12 mm port was exchanged along the left upper quadrant. An 8 mm port was placed on the left lateral abdominal wall under direct visualization Please note that the ports were placed 18 to 20 cm away from the target anatomy of the stomach. Care was taken to check that each robotic arm was safely away from collision with the bed or the patient. At the epigastrium, a medium sized Jerry liver retractor was placed under direct visualization with the [place] Planner placed under the right shoulder of the patient. The patient was repositioned in reverse Trendelenburg position at 16-degrees after lowering the bed. The robot was docked over the patient. Using grasper for arm 3, a grasper for arm 1, including vessel sealer for arm 4, the robotic system was docked and primed as described. Instruments were interchanged by the costumer assistant including endoscissors, the needle log truck driver, and stapler. I had sat at the console. Diagnostic laparoscopy confirmed adhesion involving the greater omentum to the lower abdomen from previous pelvic surgery. A window was proposed along the transverse mesocolon to identify the ligament of Treitz preparing for the jejunojejunostomy portion of the case. The ligament of Treitz was identified and measured 60 cm antegrade and marked using 3-0 Silk. The jejunum was divided at the 60 cm point using 60-mm white loads above the suture measurement. The biliopancreatic limb was held in place. The Allie limb was measured 100 cm in an antegrade fashion to avoid tension along the proposed gastrojejunal anastomosis. At 100 cm along the anti-mesenteric border of the Allie limb, a jejunojejunostomy was proposed whereby enterotomies were created along the biliopancreatic limb including the Allie limb using a Bovie cautery. A stay suture of 3-0 Slik was placed to align and create the anastomosis. The enterotomies along the anti-mesenteric borders were created followed by unidirectional fire from the patient's right side using 60 mm white load Smart technology robotic stapler. The jejunojejunostomy was found to be hemost atic. The enterotomy was closed after horizontal mattress stitch of 3-0 silk used to elevate the enterotomy followed by closure with the robotic stapler blue load. The jejunal limb was temporarily tacked along the left upper quadrant. Attention was now brought to the creation of the gastrojejunostomy. Extremely redundant superior posterior gastric pouch with adhesion of the gastric cardia to the diaphragm and spleen was identified with careful dissection over 1 hour performed. Along the lesser curvature of the stomach between the second and third veins, dissection was made along the retrogastric space to allow first firing of the robotic staple. Blue loads of 60 mm staplers were used to divide the stomach to create the gastric pouch. The patient was then prepared for placement of a Orvil. The patient was Mallampati 1. A 21-mm Orvil was selected for placement by the nurse women's ministry director. The Orvil tubing was placed anterior to the staple line of the gastric pouch and brought out through the left inferior lateral port. I re-scrubbed into the case. The robotic arms were temporarily undocked. The Orvil was then carefully and successfully navigated with the help of the nurse women's ministry director into the gastric pouch anterior to the staple line. The sutures were identified and divided. The tubing was from the 21 mm anvil. As the Orvil had been placed, the blind jejunal limb was brought proximally into the upper abdomen. No torsion was found upon the Allie limb. No tension was identified as the limb was brought along the upper abdomen. The blind jejunal limb was previously opened using endo-scissors with cautery. The 21-mm EEA stapler was brought through the left anterior lateral port site from the left side. The EEA stapler was brought through the open jejunal limb and its needle was deployed at the antimesenteric border where the anvil were mated for approximately 1 minute upon firing. The stapler was removed after irrigating the shaft of the instrument with warm normal saline. Donuts were found to be intact and on both sides. The [employer] Xi robot arms were then re-docked. I sat at the console. The open jejunal limb defect was closed using 45 mm white loads after releasing any tension from the blind jejunal limb. Care was taken to avoid any long blind limb to avoid candycane syndrome. Reinforcement sutures were placed along the gastrojejunal anastomosis and placed along the 9:00, 12:00 and 3 o'clock position using 3-0 Vicryl. The Baker and jejunojejunostomy mesenteric defects were obliterated by her intra-abdominal fat. I then went to the head of the bed to perform the esophagogastrojejunoscopy and a leak test. An Olympus gastroscope was passed along the posterior oropharynx which was unremarkable for any injury to the vocal cords. The scope was passed down to the proximal portion of the pouch, whereby no active bleeding was encountered. Excellent visualization of the gastrojejunostomy anastomosis, including the Allie limb was encountered with endoscopic image obtained. The anastomosis was found to be patent. The gastrointestinal tract was desufflated. No evidence of intraoperative leak was encountered as the gastric pouch and anastomosis were submerged under normal saline solution. The robot was then undocked. I then went back to the bedside of the patient, whereby with coordinated effort of the costumer assistant, irrigation was aspirated from the upper abdominal cavity. Tisseel was placed circumferentially over the anastomosis of the gastrojejunostomy. The fascial defect of the EEA stapler was closed using Kervin Pedraza and 0 Vicryl. All instruments and pneumoperitoneum were evacuated from the abdominal cavity. The port correlating with the EEA stapler device was cleansed with normal saline solution and hydrogen peroxide. The rest of incisions were reapproximated using 4-0 Monocryl in an interrupted subcuticular fashion. Local anesthetic was infiltrated along the skin for postop analgesia. Liquid glue was applied to the skin. OptiFoam dressing was placed along the EEA stapler site. At the end of the procedure, needle, sponge and instrument count had been verified correct by the cardiovascular surgical tech. She had tolerated the procedure well and was extubated and taken to the postanesthesia unit in stable condition. Intraoperative findings were described to the patient's family who were very pleased with the level of care. Total console time 112 minutes Operative Findings: 1. Biliopancreatic limb 60 cm 2. Bypass performed using 100 cm allie limb secondary to avoid increased tension at 150 cm. 3. Young defect and jejunojejunostomy defect obliterated by moderate intra- abdominal fat. 4. Leak test negative with gastrojejunal anastomosis patent and hemostatic. 5. Reinforcement sutures were placed along the gastrojejunal anastomosis 6. No fatty liver disease with hepatomegaly
[2019-03-20] MEDS: SIMETHICONE 40 MG/0.6 ML DROPS 2,000 MG/30 ML BOTTLE PO SCH ×3 (12:52→23:05)
[2019-03-20] MEDS: HYOSCYAMINE ORAL DROPS 1.875 MG/15 ML BOTTLE PO SCH ×3 (12:52→23:05)
[2019-03-20] MEDS: ONDANSETRON 4 MG/2 ML VIAL IVP SCH ×3 (12:53→22:47)
[2019-03-20] MEDS: 0.9% NACL WITH KCL 20 MEQ/L 1,000 ML IV SCH ×2 (13:20→17:39)
[2019-03-20] MEDS: AMPICILLIN-SULBACTAM 3 GM in SODIUM CHLORIDE 0.9% 100 ML IVPB SCH ×2 (13:20→18:05)
[2019-03-20] MEDS: ALBUTEROL NEBULIZED 2.5 MG/3 ML INHALATION SCH ×3 (15:57→19:39)
[2019-03-20] MEDS: HYDROmorphone 1 MG/ML 1 ML SYRINGE IVP PRN (18:04)
[2019-03-21] MEDS: 0.9% NACL WITH KCL 20 MEQ/L 1,000 ML IV SCH ×3 (00:34→16:17)
[2019-03-21] MEDS: HYDROcodone/APAP 15 ML SOLUTION PO PRN ×4 (00:44→21:11)
[2019-03-21] MEDS: HYOSCYAMINE ORAL DROPS 1.875 MG/15 ML BOTTLE PO SCH (05:46)
[2019-03-21] MEDS: SIMETHICONE 40 MG/0.6 ML DROPS 2,000 MG/30 ML BOTTLE PO SCH ×4 (05:47→23:30)
[2019-03-21] MEDS: ONDANSETRON 4 MG/2 ML VIAL IVP SCH ×4 (05:47→23:30)
[2019-03-21] MEDS: LACTATED RINGERS 1,000 ML IV SCH (05:55)
[2019-03-21] MEDS ORDERED: IPRATROPIUM 0.5 MG/2.5 ML NEBU INHALATION SCH (08:00)
[2019-03-21] MEDS: IPRATROPIUM-ALBUTEROL 3 ML NEB INHALATION SCH ×4 (08:36→20:02)
[2019-03-21] MEDS: FLUTICASONE 110 MCG INHALER INHALATION SCH ×2 (08:36→20:02)
[2019-03-21] MEDS: ALBUTEROL NEBULIZED 2.5 MG/3 ML INHALATION SCH (08:42)
[2019-03-21 08:43] LABS: Anisocytosis Slight; Basophils # (A) 0.1 k/uL (0-0.2); Basophils % (A) 1 %; Eosinophils # (A) 0.1 k/uL (0-0.7); Eosinophils % (A) 1 %; HCT 36.9 % (34.0-46.0); HGB 11.8 gm/dL (11.4-16.0); Lymphocytes # (A) 1.1 k/uL (1.0-4.8); Lymphocytes % (A) 10 %; MCH 26.6 pg (25.0-35.0); MCHC 32.1 g/dL (31.0-37.0); MCV 82.9 fL (80.0-100.0); Mean Platelet Volume 6.9; Monocytes # (A) 0.8 k/uL (0-1.0); Monocytes % (A) 7 %; Neutrophils # (A) 9.1 k/uL (1.3-7.7); Neutrophils % (A) 80 %; Platelet Count 356 k/uL (150-450); RBC 4.45 m/uL (3.80-5.40); RDW 16.7 % (11.5-15.5); WBC 11.4 k/uL (3.8-10.6)
--- NOTE | 2019-03-21 08:47 | CDI ---
Documentation Clarification Form Date: 03/21/2019 8:29:25 AM From: Madhuri Andrade RN, CCDS Admit Date: 03/20/2019 5:50:00 AM Patient Name: Kenyatta Reed Visit Number: [id number] ATTENTION: The Clinical Documentation Specialists (CDI) and [facility] Coding Staff appreciate your assistance in clarifying documentation. Please respond to the clarification below the line at the bottom and electronically sign. The CDI & [facility] Coding staff will review the response and follow-up if needed. Please note: Queries are made part of the Legal Health Record. If you have any questions, please contact the author of this message via ITS. Dr. Flory Moreno Asthma is documented in the H&P on 4 occasions and in the same H&P under consitutional : "no Asthma". Please clairify if the condition is present and provide specificity if the condition does exist. History/risk factors: Asthma, Anxiety, ARABELLA with home Cpap, CHF, COPD Clinical Indicators: 03/20 H&P: "PMH: Asthma, Assessment: Asthma, PMH: seeing stockroom keeper for "random, quick stabbing chest pain;" patient states that she believes stockroom keeper, Dr. Williamson, is leaning toward believing that these pains are asthma related, uses cpap," Vital Signs Pre-Op: Temp 97, Hr 66, rr 16, b/p 149/75, SPo2 95% ra Other Clinical Indicators: 03/20 H&P: Respiratory: "RESPIRATORY: Has daytime somnolence. No asthma." Treatment: Home CPAP at night with 4L O2 bled in Medication: Ventolin 2.5 mg INH QID In your professional opinion, can you please further specify the following, if known? Asthma ruled out Asthma ruled in With Acute Exacerbation Status asthmaticus Acute lower respiratory infection COPD (specify with or without exacerbation) Chronic obstructive bronchitis Other, please specify ___ Unable to determine Severity Mild intermittent Mild persistent Moderate persistent Severe persistent Other, please specify ____ Unable to determine Form or Type Cough variant Childhood Exercise induced bronchospasm Extrinsic allergic Idiosyncratic Intrinsic nonallergic Late-onset Mixed Other, please specify____ Unable to determine (Last Revision: February 2018) MTDD
[2019-03-21 08:53] LABS: Anion Gap 4 mmol/L; Blood Urea Nitrogen 7 mg/dL (7-17); Carbon Dioxide 27 mmol/L (22-30); Chloride 107 mmol/L (98-107); Potassium 3.7 mmol/L (3.5-5.1); Sodium 138 mmol/L (137-145)
[2019-03-21 08:54] LABS: Calcium 8.6 mg/dL (8.4-10.2); Magnesium 1.5 mg/dL (1.6-2.3); Phosphorus 2.5 mg/dL (2.5-4.5)
--- NOTE | 2019-03-21 08:58 | CDI ---
Documentation Clarification Form Date: 03/21/2019 8:50:26 AM From: Madhuri Andrade RN, CCDS Admit Date: 03/20/2019 5:50:00 AM Patient Name: Kenyatta Reed Visit Number: [id number] ATTENTION: The Clinical Documentation Specialists (CDI) and [facility] Coding Staff appreciate your assistance in clarifying documentation. Please respond to the clarification below the line at the bottom and electronically sign. The CDI & [facility] Coding staff will review the response and follow-up if needed. Please note: Queries are made part of the Legal Health Record. If you have any questions, please contact the author of this message via ITS. Dr. Flory Moreno CHF is documented in the H&P and requires further specificity if known. History/Risk Factors: CHF, HTN CVD, Asthma, COPD Clinical Indicators: VS/Pulse OX: Temp 97, Hr 66, RR 16, B/P 149/75, spo2 95% room air Echocardiogram Results: no previous echo available BNP, CXR not available Treatment: Pt is on Lasix 40 mg PO BID @ home, no Diuretics ordered inpatient In your professional opinion, can you please clarify the acuity and type of CHF if known? Chronic Systolic Heart Failure: Chronic Diastolic Heart Failure: Chronic Systolic & Diastolic Heart Failure: Chronic Heart Failure type unknown Unable to Determine Other, please specify (Last Revision: February 2018) MTDD
[2019-03-21] MEDS: ENOXAPARIN 40 MG/0.4 ML SYRINGE SQ SCH (09:07)
[2019-03-21] MEDS: TAMSULOSIN 0.4 MG CAP.ER.24H PO SCH (09:11)
[2019-03-21] MEDS: HYDROmorphone 1 MG/ML 1 ML SYRINGE IVP PRN ×3 (10:05→22:37)
[2019-03-21] MEDS: MAGNESIUM SULFATE-D5W PMX 1 GM in DEXTROSE/WATER 1 100ML.BAG IVPB SCH ×4 (10:54→15:06)
--- NOTE | 2019-03-21 12:42 | P.PN ---
Subjective Progress Note Date: 03/21/19 CHIEF COMPLAINT: Obesity HISTORY OF PRESENT ILLNESS: 43-year-old female who underwent Parker-en-Y gastric bypass. POD #1. Patient complains of pain this morning but states it is tolerable at this time. She is tolerating clear liquid diet. Patient experi encing urinary retention. She required straight cath overnight. She was bladder scanned this morning and is continuing to retain urine. Patient states she had a hysterectomy last year and experienced postoperative urinary retention. Patient states she required multiple straight cath but did not have to go home with a Navas catheter. Patient is refusing indwelling urinary catheter placement at this time. She would like to be straight cathed one more time before navas catheter insertion. She is using IS 10 times an hour. Ambulating with physical therapy in the hallway. WBC 11.4. Magnesium 1.5. PHYSICAL EXAM: VITAL SIGNS: Reviewed. GENERAL: Well-developed in no acute distress. HEENT: No sclera icterus. Extraocular movements grossly intact. Moist buccal mucosa. Head is atraumatic, normocephalic. ABDOMEN: Soft. Nondistended. Surgical incision sites clean dry and intact without drainage. NEUROLOGIC: Alert and oriented. Cranial nerves II through XII grossly intact. ASSESSMENT: 1. Morbid obesity due to excess calories 2. Body mass index of 61.7, initial 3. Osteoarthritis of the knees. 4. Osteoarthritis of the hips. 5. Osteoarthritis of the lower back. 6. Obstructive sleep apnea. 7. Hypertensive heart disease. 8. Bilateral lower extremities swelling 9. Plantar fasciitis 10. Gastroesophageal reflux disease 11. Asthma 12. Hyperlipidemia 13. Anxiety disorder 14. Chronic obstructive pulmonary disorder 15. Congestive heart failure 16. Depressive disorder 17. Postoperative urinary retention, pre-existing medical condition PLAN: 1. Pain control 2. Incentive spirometry 3. Activity as tolerated 4. Patient refusing indwelling catheter at this time. Will straight cath x 1. If urinary retention continues, will require indwelling urinary catheter. 5. Begin Flomax 0.4mg. FISH HOUSE WORKER witnessed size of medication and okay to give. 6. Replace magnesium Nurse practitioner note has been reviewed by physician. Signing provider agrees with the documented findings, assessment, and plan of care. Objective - Vital Signs Vital signs: Vital Signs Temp 98.4 F 03/21/19 07:00 Pulse 82 03/21/19 12:00 Resp 16 03/21/19 07:00 BP 110/67 03/21/19 07:00 Pulse Ox 91 L 03/21/19 11:23 Intake & Output 03/20/19 03/21/19 03/21/19 18:59 06:59 18:59 Intake Total 2850 300 Output Total 1145 500 375 Balance 1705 -200 -375 Intake: IV 2850 ACETAMINOPHEN IV (For NPO 100 ) 1,000 mg In Empty Bag 1 bag @ 400 mls/hr IVPB ONCE ONE Rx#:[id number] Intake, IV Titration 300 Amount 0.9% NaCl with KCl 20 Meq 300 /l 1,000 ml @ 100 mls/hr IV .Q10H KARLI Rx#: [id number] Output: Urine 1135 500 375 Straight 375 Uretheral (Navas) 650 500 Estimated Blood Loss 10 Other: # Voids 0 - Labs CBC & Chem 7: 03/21/19 07:34 03/21/19 07:34 Labs: Abnormal Lab Results - Last 24 Hours (Table) 03/21/19 03/21/19 Range/Units 07:34 07:34 WBC 11.4 H (3.8-10.6) k/uL RDW 16.7 H (11.5-15.5) % Neutrophils # 9.1 H (1.3-7.7) k/uL Magnesium 1.5 L (1.6-2.3) mg/dL Assessment and Plan (1) Morbid obesity due to excess calories Current Visit: Yes Status: Acute Code(s): E66.01 - MORBID (SEVERE) OBESITY DUE TO EXCESS CALORIES SNOMED Code(s): 399065618 (2) Urinary retention Current Visit: Yes Status: Acute Code(s): R33.9 - RETENTION OF URINE, UNSPECIFIED SNOMED Code(s): 951371874
[2019-03-21] MEDS: ceFAZolin 3 GM in SODIUM CHLORIDE 0.9% 100 ML IVPB SCH ×2 (16:16→23:30)
--- NOTE | 2019-03-21 21:47 | P.PN ---
Progress Note - Text Progress Note Date: 03/21/19 She reports weight loss from 388 to 369 prior to surgery. She had urinary retention that is now just resolving. Discharge instructions reviewed with discharge tomorrow and follow-up on Wednesday.
[2019-03-22] MEDS: 0.9% NACL WITH KCL 20 MEQ/L 1,000 ML IV SCH ×2 (05:02→15:13)
[2019-03-22] MEDS: SIMETHICONE 40 MG/0.6 ML DROPS 2,000 MG/30 ML BOTTLE PO SCH ×2 (05:22→11:53)
[2019-03-22] MEDS: ONDANSETRON 4 MG/2 ML VIAL IVP SCH ×2 (05:22→11:52)
[2019-03-22] MEDS: HYDROcodone/APAP 15 ML SOLUTION PO PRN ×2 (05:22→11:52)
[2019-03-22] MEDS: LACTATED RINGERS 1,000 ML IV SCH (06:14)
[2019-03-22] MEDS: ceFAZolin 3 GM in SODIUM CHLORIDE 0.9% 100 ML IVPB SCH (07:13)
[2019-03-22] MEDS: HYDROmorphone 1 MG/ML 1 ML SYRINGE IVP PRN (07:17)
[2019-03-22] MEDS ORDERED: BISACODYL 5 MG TABLET.DR PO PRN (08:00)
[2019-03-22] MEDS: IPRATROPIUM-ALBUTEROL 3 ML NEB INHALATION SCH ×2 (08:13→11:38)
[2019-03-22] MEDS: FLUTICASONE 110 MCG INHALER INHALATION SCH (08:13)
[2019-03-22] MEDS: TAMSULOSIN 0.4 MG CAP.ER.24H PO SCH (09:52)
[2019-03-22] MEDS: ENOXAPARIN 40 MG/0.4 ML SYRINGE SQ SCH (09:53)
--- NOTE | 2019-03-22 11:02 | P.PN ---
Subjective Progress Note Date: 03/22/19 CHIEF COMPLAINT: Obesity HISTORY OF PRESENT ILLNESS: 43-year-old female who underwent Parker-en-Y gastric bypass. POD #2. Patient examined at the bedside. She reports her pain is tolerable this morning. Urinary retention has resolved. Patient voiding on her own without difficulty. She reports passing flatus. Tolerating clear liquid diet. Denies nausea or vomiting. She is currently wearing 3L of oxygen. Bedside pulse ox displays 95%. Patient states her oxygen saturations were in the 80s yesterday and she was placed on oxygen at that time. Ambulation and use of IS were encouraged. PHYSICAL EXAM: VITAL SIGNS: Reviewed. GENERAL: Well-developed in no acute distress. HEENT: No sclera icterus. Extraocular movements grossly intact. Moist buccal mucosa. Head is atraumatic, normocephalic. ABDOMEN: Soft. Nondistended. Surgical incision sites clean dry and intact without drainage. NEUROLOGIC: Alert and oriented. Cranial nerves II through XII grossly intact. ASSESSMENT: 1. Morbid obesity due to excess calories 2. Body mass index of 61.7, initial 3. Osteoarthritis of the knees. 4. Osteoarthritis of the hips. 5. Osteoarthritis of the lower back. 6. Obstructive sleep apnea. 7. Hypertensive heart disease. 8. Bilateral lower extremities swelling 9. Plantar fasciitis 10. Gastroesophageal reflux disease 11. Asthma 12. Hyperlipidemia 13. Anxiety disorder 14. Chronic obstructive pulmonary disorder 15. Congestive heart failure 16. Depressive disorder 17. Postoperative urinary retention, pre-existing medical condition PLAN: 1. Pain control 2. Incentive spirometry 3. Activity as tolerated 4. Repeat lab work this morning 5. Wean oxygen as tolerated to maintain O2 sats greater than 92% 6. Anticipate discharge home this afternoon after patient is evaluated by Dr. Moreno Nurse practitioner note has been reviewed by physician. Signing provider agrees with the documented findings, assessment, and plan of care. Objective - Vital Signs Vital signs: Vital Signs Temp 97.9 F 03/22/19 07:00 Pulse 62 03/22/19 08:24 Resp 14 03/22/19 07:00 BP 117/73 03/22/19 07:00 Pulse Ox 96 03/22/19 08:13 Intake & Output 03/21/19 03/22/19 03/22/19 18:59 06:59 18:59 Intake Total 240 1040 200 Output Total 825 625 Balance -585 415 200 Intake: Intake, IV Titration 300 Amount 0.9% NaCl with KCl 20 Meq 300 /l 1,000 ml @ 100 mls/hr IV .Q10H KARLI Rx#: [id number] Oral 240 740 200 Output: Urine 825 625 Straight 375 Other: Voiding Method Toilet # Voids 0 1 # Bowel Movements 0 - Labs CBC & Chem 7: 03/21/19 07:34 03/21/19 07:34 Assessment and Plan (1) Morbid obesity due to excess calories Current Visit: Yes Status: Acute Code(s): E66.01 - MORBID (SEVERE) OBESITY DUE TO EXCESS CALORIES SNOMED Code(s): 031162576 (2) Urinary retention Current Visit: Yes Status: Acute Code(s): R33.9 - RETENTION OF URINE, UNSPECIFIED SNOMED Code(s): 478269800
[2019-03-22 11:44] VITALS: BMI 58.3
[2019-03-22 12:33] LABS: Anisocytosis Slight; Basophils % (A) 0 %; Eosinophils # (A) 0.4 k/uL (0-0.7); Eosinophils % (A) 5 %; HCT 36.2 % (34.0-46.0); HGB 11.8 gm/dL (11.4-16.0); Lymphocytes # (A) 1.7 k/uL (1.0-4.8); Lymphocytes % (A) 17 %; MCH 27.3 pg (25.0-35.0); MCHC 32.5 g/dL (31.0-37.0); MCV 83.9 fL (80.0-100.0); Monocytes # (A) 0.6 k/uL (0-1.0); Monocytes % (A) 6 %; Neutrophils # (A) 6.8 k/uL (1.3-7.7); Neutrophils % (A) 70 %; Platelet Count 321 k/uL (150-450); RBC 4.31 m/uL (3.80-5.40); RDW 16.7 % (11.5-15.5); WBC 9.6 k/uL (3.8-10.6)
[2019-03-22 12:47] LABS: Anion Gap 9 mmol/L; Blood Urea Nitrogen 5 mg/dL (7-17); Carbon Dioxide 23 mmol/L (22-30); Chloride 105 mmol/L (98-107); Glucose 85 mg/dL (74-99); Magnesium 1.9 mg/dL (1.6-2.3); Potassium 3.5 mmol/L (3.5-5.1); Sodium 137 mmol/L (137-145)
[2019-03-22 14:32] VITALS: BP 100/63; PULSE 76; RESP 16; TEMP 98.5
--- NOTE | 2019-03-23 20:42 | P.DS ---
Providers Date of admission: 03/20/19 05:50 Expected date of discharge: 03/22/19 Attending physician: Flory Moreno Primary care physician: [facility] Course: Patient safe to go home with follow up at the bariatric center in 3 days. Plan - Discharge Summary Discharge Rx Participant: No New Discharge Prescriptions: New Bisacodyl [Dulcolax] 5 mg PO DAILY PRN #10 tablet.dr PRN Reason: Constipation RX: Simethicone 40 mg/0.6 ml Drops [Mylicon Drops] 40 mg PO PCHS PRN #30 ml PRN Reason: gas Ondansetron Odt [Zofran Odt] 4 mg PO Q8HR PRN #9 tab PRN Reason: Nausea HYDROcodone/APAP [[place]ack Elixir 7.5-325Mg/15Ml] 15 ml PO Q6HR PRN 3 Days #180 ml PRN Reason: Pain RX: Omeprazole 40 mg PO DAILY #90 capsule.dr Continue RX: Montelukast [Singulair] 10 mg PO HS RX: Budesonide-Formot 160-4.5 Mcg [Symbicort 160-4.5 Mcg Inhaler] 2 puff INHALATION RT-BID RX: Tiotropium [place] [Spiriva] 2 puff INHALATION RT-DAILY RX: Beclomethasone Dipropionate [Qvar 80 mcg] 2 puff INHALATION RT-BID RX: buPROPion HCL [Wellbutrin SR] 150 mg PO BID RX: FLUoxetine HCL [PROzac] 20 mg PO QAM RX: Mirabegron [Myrbetriq] 50 mg PO DAILY Discontinued Furosemide [Lasix] 40 mg PO BID Potassium Chloride ER [K-Dur 10] 10 meq PO BID RX: Albuterol Nebulized [Ventolin Nebulized] 2.5 mg INHALATION RT-Q4H PRN PRN Reason: Bronchospasm Docusate Sodium [Dok] 100 mg PO BID ALPRAZolam [Xanax] 0.25 mg PO TID PRN PRN Reason: Anxiety RX: Omeprazole 20 mg PO DAILY Discharge Medication List RX: Montelukast [Singulair] 10 mg PO HS 02/24/16 [History] RX: Budesonide-Formot 160-4.5 Mcg [Symbicort 160-4.5 Mcg Inhaler] 2 puff INHALATION RT-BID 04/18/18 [History] RX: Tiotropium [place] [Spiriva] 2 puff INHALATION RT-DAILY 04/18/18 [History] RX: Beclomethasone Dipropionate [Qvar 80 mcg] 2 puff INHALATION RT-BID 09/20/18 [History] RX: FLUoxetine HCL [PROzac] 20 mg PO QAM 03/13/19 [History] RX: Mirabegron [Myrbetriq] 50 mg PO DAILY 03/13/19 [History] RX: buPROPion HCL [Wellbutrin SR] 150 mg PO BID 03/13/19 [History] Bisacodyl [Dulcolax] 5 mg PO DAILY PRN #10 tablet. 03/21/19 [Rx] HYDROcodone/APAP [[place] Elixir 7.5-325Mg/15Ml] 15 ml PO Q6HR PRN 3 Days #180 ml 03/21/19 [Rx] Ondansetron Odt [Zofran Odt] 4 mg PO Q8HR PRN #9 tab 03/21/19 [Rx] RX: Simethicone 40 mg/0.6 ml Drops [Mylicon Drops] 40 mg PO PCHS PRN #30 ml 03/21/19 [Rx] RX: Omeprazole 40 mg PO DAILY #90 capsule. 03/22/19 [Rx] Follow up Appointment(s)/Referral(s): [facility] Center,. [NON-STAFF] - 03/24/19 10:00 am Patient Instructions/Handouts: Parker-en-Y Gastric Bypass (DC), Nutrition after Bariatric Surgery (DC), How to Use an Incentive Spirometer (ED) Activity/Diet/Wound Care/Special Instructions: OPEN OR CRUSH MEDICATIONS LARGER THAN A TIC-TAC. TAKE OMEPRAZOLE BY OPEN CAPSULE OR CRUSH WITH APPLE SAUCE. DRINK 64 OZ FLUID DAILY. START PROTEIN SHAKES WEDNESDAY. No driving while taking [place]. No lifting over 10 pounds. You may shower. No soaking or tub baths. Very light activity until you are reevaluated at your follow up appointment with your surgeon. Discharge Disposition: HOME SELF-CARE
== END 2019-03-22 16:23 | disposition home or self-care (01) | DRG 621 ==
LOC: 2ORMAIN 05:50 → 4SSUR 11:11 → 4MS4W 03-21 22:08 → 4SSUR 03-22 01:10
PROVIDERS: ADMIT Surgery Plastic and Reconstructive Surgery; ATTEND Surgery Plastic and Reconstructive Surgery
DX: E66.01 Morbid (severe) obesity due to excess calories (principal); M16.0 Bilateral primary osteoarthritis of hip; M17.0 Bilateral primary osteoarthritis of knee; G47.33 Obstructive sleep apnea (adult) (pediatric); K21.9 Gastro-esophageal reflux disease without esophagitis; F32.9 Major depressive disorder, single episode, unspecified; E78.5 Hyperlipidemia, unspecified; M47.9 Spondylosis, unspecified; E78.00 Pure hypercholesterolemia, unspecified; R33.8 Other retention of urine; F41.9 Anxiety disorder, unspecified; J45.909 Unspecified asthma, uncomplicated; I50.9 Heart failure, unspecified; I11.0 Hypertensive heart disease with heart failure; M72.2 Plantar fascial fibromatosis; Z68.44 Body mass index [BMI] 60.0-69.9, adult; Z79.899 Other long term (current) drug therapy; Z90.710 Acquired absence of both cervix and uterus; Z90.89 Acquired absence of other organs; Z98.891 History of uterine scar from previous surgery; Z79.51 Long term (current) use of inhaled steroids; Z87.891 Personal history of nicotine dependence; Z81.3 Family history of other psychoactive substance abuse and dependence; Z83.3 Family history of diabetes mellitus; Z82.49 Family history of ischemic heart disease and other diseases of the circulatory system
CPT/HCPCS: 80048; 80051; 82310; 82565; 83735; 84100; 84520; 85025; 86850; 86900; 86901; 94640; 94760

== ENCOUNTER → 2019-03-24 | Outpatient (CLI) | payer BC ==
[2019-03-24 10:50] VITALS: BP 123/76; PULSE 83; TEMP 98.4; BMI 57.4
--- NOTE | 2019-03-24 20:19 | P.PN ---
Subjective Progress Note Date: 03/24/19 DATE OF SERVICE: 03/24/2019 CHIEF COMPLAINT: Morbid obesity HISTORY OF PRESENT ILLNESS: Kenyatta Reed is a 44-year-old female s/p gastric bypass, 03/20/2019. She is POD 4. She denies any nausea or vomiting. Pain is well controlled. She has bruising along the midline. She is tolerating fluids. She is drinking over 64 ounces. She is passing flatus. At height of 5 feet 8 inches, her ideal body weight is 163 pounds. Her highest weight was 405 pounds. She comes in 377 pounds from 368 pounds, 2 weeks ago. She has gained 9 pounds in 2 weeks. Her body mass index highest was 61.7. Today her BMI is 57.5. Lifetime weight loss is 28 pounds. Percent excess weight loss is 11%. PHYSICAL EXAM: VITAL SIGNS: Height 5 foot 8 inches, weight 377 pounds. BMI 57.5 Vital Signs Temp 98.4 F 03/24/19 10:43 Pulse 83 03/24/19 10:43 Resp BP 123/76 03/24/19 10:43 Pulse Ox GENERAL: Well-developed in no acute distress. HEENT: No scleral icterus. Extraocular movements grossly intact. Hears conversational speech. No nasal drainage. NECK: Supple without lymphadenopathy. CHEST: Nonlabored respirations with equal bilateral excursions. CARDIOVASCULAR: Regular rate and regular rhythm. Distal 2+ pulses. ABDOMEN: Obese, soft, nontender, nondistended. MUSCULOSKELETAL: No clubbing, cyanosis. Gross strength 5/5 distal lower extremities. NEURO: No focal or lateralizing signs. Cranial nerves 2 through 12 grossly within normal limits. PSYCH: Appropriate affect. Alert and oriented to person, place and time. SKIN: Good skin turgor. Well perfused. ASSESSMENT: 1. Morbid obesity due to excess calories 2. Body mass index of 61.7, initial to 56.1 3. Osteoarthritis of the knees. 4. Osteoarthritis of the hips. 5. Osteoarthritis of the lower back. 6. Obstructive sleep apnea. 7. Hypertensive heart disease. 8. Bilateral lower extremities swelling 9. Plantar fasciitis 10. Gastroesophageal reflux disease 11. Asthma 12. Hyperlipidemia 13. Anxiety disorder 14. Chronic obstructive pulmonary disorder 15. Congestive heart failure 16. Depressive disorder 17. Status post gastric bypass PLAN: 1. She has no infection. 2. Follow up nurse visit next week. 3. Recommend stage II bariatric diet. Objective - Vital Signs Vital signs: Vital Signs Temp 98.4 F 03/24/19 10:43 Pulse 83 03/24/19 10:43 Resp BP 123/76 03/24/19 10:43 Pulse Ox Intake & Output 03/24/19 03/24/19 03/25/19 06:59 18:59 06:59 Weight 171.458 kg
== END | disposition home or self-care (01) ==
LOC: BARWHC3 10:01
PROVIDERS: ATTEND Surgery Plastic and Reconstructive Surgery
DX: E66.01 Morbid (severe) obesity due to excess calories (principal); M16.0 Bilateral primary osteoarthritis of hip; M17.0 Bilateral primary osteoarthritis of knee; M47.816 Spondylosis without myelopathy or radiculopathy, lumbar region; G47.33 Obstructive sleep apnea (adult) (pediatric); I11.0 Hypertensive heart disease with heart failure; I50.9 Heart failure, unspecified; M79.89 Other specified soft tissue disorders; M72.2 Plantar fascial fibromatosis; K21.9 Gastro-esophageal reflux disease without esophagitis; E78.5 Hyperlipidemia, unspecified; F41.9 Anxiety disorder, unspecified; J44.9 Chronic obstructive pulmonary disease, unspecified; F32.9 Major depressive disorder, single episode, unspecified; Z68.43 Body mass index [BMI] 50.0-59.9, adult; Z98.84 Bariatric surgery status
CPT/HCPCS: 99211

== ENCOUNTER → 2019-03-29 | Outpatient (CLI) | payer BC ==
[2019-03-29 10:29] VITALS: BP 129/85; PULSE 65; TEMP 98.1; BMI 55.2
== END | disposition home or self-care (01) ==
LOC: BARWHC3 09:58
PROVIDERS: ATTEND Surgery Plastic and Reconstructive Surgery
DX: E66.01 Morbid (severe) obesity due to excess calories (principal); Z68.43 Body mass index [BMI] 50.0-59.9, adult
CPT/HCPCS: 97803; 99211

== ENCOUNTER 2019-04-05 | Emergency (ER) | payer BC ==
[2019-04-05 00:57] VITALS: TEMP 98.1
[2019-04-05] MEDS ORDERED: IOPAMIDOL-300 CONTRAST 30 ML VIAL (ORAL USE) PO PRN (02:01)
--- NOTE | 2019-04-05 02:03 | ED ---
Abdominal Pain HPI - General Source: patient Mode of arrival: ambulatory Limitations: no limitations <Adilene Benítez - Last Filed: 04/05/19 04:06> <Yaquelin Araujo - Last Filed: 04/05/19 07:44> - General Chief Complaint: Abdominal Pain Stated Complaint: Post Op Complications, Abd Pain Time Seen by Provider: 04/05/19 01:45 - History of Present Illness Initial Comments: 43-year-old female presenting today for chief complaint of nausea x 2-3 hours. Patient states that she just switched from liquid diet to a pured diet after her gastric bypass surgery performed by Dr. Moreno. She states this was performed 03/20/2019. Patient states she has had some abdominal pain associated with the nausea after eating puree food for the first time and was concerned of a complication. She states she contacted her surgeon and spoke with her partner Dr. Pool who recommended outpatient f/u tomorrow. Pt wanted to be sure nothing was wrong and came to the ER for evaluation. Pt states the pain was sharp in the right side of abdomen, with some radiation to the back. She denies vomiting, diarrhea fever chills or night sweats. Remaining review of systems negative. Upon arrival patient appears well no signs of acute distress. (Adilene Benítez) - Related Data Home Medications Medication Instructions Recorded Confirmed Montelukast [Singulair] 10 mg PO HS 02/24/16 04/05/19 Budesonide-Formot 160-4.5 Mcg 2 puff INHALATION RT-BID 04/18/18 04/05/19 [Symbicort 160-4.5 Mcg Inhaler] Tiotropium [place] [Spiriva] 2 puff INHALATION RT-DAILY 04/18/18 04/05/19 Beclomethasone Dipropionate [Qvar 2 puff INHALATION RT-BID 09/20/18 04/05/19 80 mcg] FLUoxetine HCL [PROzac] 20 mg PO QAM 03/13/19 04/05/19 Mirabegron [Myrbetriq] 50 mg PO DAILY 03/13/19 04/05/19 buPROPion HCL [Wellbutrin SR] 150 mg PO BID 03/13/19 04/05/19 Previous Rx's Medication Instructions Recorded Bisacodyl [Dulcolax] 5 mg PO DAILY PRN #10 tablet. 03/21/19 Ondansetron Odt [Zofran Odt] 4 mg PO Q8HR PRN #9 tab 03/21/19 Simethicone 40 mg/0.6 ml Drops 40 mg PO PCHS PRN #30 ml 03/21/19 [Mylicon Drops] HYDROcodone/APAP 7.5-325MG [[place] 1 tab PO Q4H PRN #18 tab 03/22/19 7.5-325] Omeprazole 40 mg PO DAILY #90 capsule. 03/22/19 Allergies Allergy/AdvReac Type Severity Reaction Status Date / Time No Known Allergies Allergy Verified 03/29/19 10:33 Review of Systems ROS Other: All systems not noted in ROS Statement are negative. <Adilene Benítez - Last Filed: 04/05/19 04:06> ROS Other: All systems not noted in ROS Statement are negative. <Yaquelin Araujo - Last Filed: 04/05/19 07:44> ROS Statement: Those systems with pertinent positive or pertinent negative responses have been documented in the HPI. Past Medical History Past Medical History: Asthma, GERD/Reflux, Hyperlipidemia, Sleep Apnea/CPAP/BIPAP Additional Past Medical History / Comment(s): seeing battery test engineer for "random, quick stabbing chest pain;" patient states that she believes battery test engineer, Dr. Williamson, is leaning toward believing that these pains are asthma related, uses cpap,"bladder issues" History of Any Multi-Drug Resistant Organisms: None Reported Past Surgical History: Bariatric Surgery, Section, Cholecystectomy, Hysterectomy, Orthopedic Surgery, Tonsillectomy Additional Past Surgical History / Comment(s): plantar faciitis-lengthened tendon, diverticulum removed, D&C, gastric bypass 03-20-19 Past Anesthesia/Blood Transfusion Reactions: Motion Sickness, Postoperative Nausea & Vomiting (PONV) Additional Past Anesthesia/Blood Transfusion Reaction / Comment(s): Patient states she has had 2 episodes of "spinal headaches" following 2 separate epidurals. No history of blood transfusion to date Past Psychological History: Anxiety Smoking Status: Former smoker Past Alcohol Use History: None Reported Past Drug Use History: None Reported - Past Family History Father Family Medical History: Hypertension, Renal Disease Additional Family Medical History / Comment(s): at age 67 from hyp ertensive damage to organs Mother Family Medical History: Hypertension Additional Family Medical History / Comment(s): at age 69. Sister(s) Family Medical History: Myocardial Infarction ([place]) Additional Family Medical History / Comment(s): Alcoholism, at age 57 from " maker" heart attack. Brother(s) Family Medical History: Coronary Artery Disease (CAD) Additional Family Medical History / Comment(s): Alcoholism, drug addiction, carotid artery clogged 100% and 90% at age 58. <JackelinAdilene L - Last Filed: 04/05/19 04:06> General Exam Limitations: no limitations <Adilene Benítez - Last Filed: 04/05/19 04:06> - General Exam Comments Initial Comments: General: The patient is awake and alert, in no distress, and does not appear acutely ill. Eye: Pupils are equal, round and reactive to light, extra-ocular movements are intact. No nystagmus. There is normal conjunctiva bilaterally. No signs of icterus. Ears, nose, mouth and throat: There are moist mucous membranes and no oral lesions. Neck: The neck is supple, there is no tenderness or JVD. Cardiovascular: There is a regular rate and rhythm. No murmur, rub or gallop is appreciated. Respiratory: Lungs are clear to auscultation, respirations are non-labored, breath sounds are equal. No wheezes, stridor, rales, or rhonchi. Gastrointestinal: Soft, non-distended, non-tender abdomen without masses or organomegaly noted. There is no rebound or guarding present. No CVA tenderness. Bowel sounds are unremarkable. Musculoskeletal: Normal ROM, no tenderness. Strength 5/5. Sensation intact. Pulses equal bilaterally 2+. Neurological: A&O x 3. CN II-XII intact, There are no obvious motor or sensory deficits. Coordination appears grossly intact. Speech is normal. Skin: Skin is warm and dry and no rashes or lesions are noted. Psychiatric: Cooperative, appropriate mood & affect, normal judgment. (Adilene Benítez) Course Vital Signs 04/05/19 04/05/19 00:51 02:55 Temperature 98.1 F Pulse Rate 74 55 L Respiratory 18 16 Rate Blood Pressure 126/79 125/82 O2 Sat by Pulse 96 98 Oximetry Medical Decision Making - Lab Data Result diagrams: 04/05/19 02:50 04/05/19 02:50 <Adilene Benítez - Last Filed: 04/05/19 04:06> - Lab Data Result diagrams: 04/05/19 02:50 04/05/19 02:50 <Yaquelin Araujo - Last Filed: 04/05/19 07:44> - Medical Decision Making Well-appearing 43-year-old female recent gastric bypass surgery performed by Dr. Ramsey. CT was obtained using bariatric parameters. Revealing no evidence of postoperative complication. I did contact Dr Pool who recommended outpatient f/u in clinic. Patient's laboratory studies are unremarkable. No leukocytosis. Contaminated urinalysis. Patient states she has not had another episode of pain she appears well she states she is comfortable discharge outpatient an office tomorrow. Return parameters include immediate return for worsening pain or vomiting were discussed with patient verbalized understanding. Patient was discharged. Will after discussed the case with my attending provider Dr. Araujo. (Adilene Benítez) I was available for consultation in the emergency department. The history and physical exam were done by the midlevel provider. I was consulted for this patient's care. I reviewed the case with the midlevel provider and based on their presentation of the patient, I agree with the assessment, medical decision making and plan of care as documented. Chart was dictated using [employer] dictation software. Attempts were made to correct any dictation errors however some typographical errors may persist. (Yaquelin Araujo) - Lab Data Lab Results 04/05/19 04/05/19 04/05/19 Range/Units 02:50 02:50 03:10 WBC 10.5 (3.8-10.6) k/uL RBC 5.32 (3.80-5.40) m/uL Hgb 14.2 (11.4-16.0) gm/dL Hct 42.9 (34.0-46.0) % MCV 80.6 (80.0-100.0) fL MCH 26.8 (25.0-35.0) pg MCHC 33.2 (31.0-37.0) g/dL RDW 16.8 H (11.5-15.5) % Plt Count 494 H (150-450) k/uL Neutrophils % 70 % Lymphocytes % 20 % Monocytes % 4 % Eosinophils % 3 % Basophils % 1 % Neutrophils # 7.3 (1.3-7.7) k/uL Lymphocytes # 2.2 (1.0-4.8) k/uL Monocytes # 0.5 (0-1.0) k/uL Eosinophils # 0.3 (0-0.7) k/uL Basophils # 0.1 (0-0.2) k/uL Anisocytosis Slight Sodium 137 (137-145) mmol/L Potassium 6.0 H (3.5-5.1) mmol/L Chloride 104 (98-107) mmol/L Carbon Dioxide 22 (22-30) mmol/L Anion Gap 11 mmol/L BUN 10 (7-17) mg/dL Creatinine 0.55 (0.52-1.04) mg/dL Est GFR (CKD-EPI)AfAm >90 (>60 ml/min/1.73 sqM) Est GFR (CKD-EPI)NonAf >90 (>60 ml/min/1.73 sqM) Glucose 86 (74-99) mg/dL Calcium 10.0 (8.4-10.2) mg/dL Total Bilirubin 1.0 (0.2-1.3) mg/dL AST 54 H (14-36) U/L ALT 24 (9-52) U/L Alkaline Phosphatase 78 (38-126) U/L Total Protein 8.2 (6.3-8.2) g/dL Albumin 4.6 (3.5-5.0) g/dL Amylase 75 (30-110) U/L Lipase 242 (23-300) U/L Urine Color Yellow Urine Appearance Cloudy H (Clear) Urine pH 5.5 (5.0-8.0) Ur Specific [place] >1.050 H (1.001-1.035) Urine Protein Trace H (Negative) Urine Glucose (UA) Negative (Negative) Urine Ketones 2+ H (Negative) Urine Blood Negative (Negative) Urine Nitrite Negative (Negative) Urine Bilirubin Negative (Negative) Urine Urobilinogen <2.0 (<2.0) mg/dL Ur Leukocyte Esterase Negative (Negative) Urine RBC 2 (0-5) /hpf Urine WBC 1 (0-5) /hpf Ur Squamous Epith Cells 32 H (0-4) /hpf Urine Mucus Rare H (None) /hpf Disposition Is patient prescribed a controlled substance at d/c from ED?: No Time of Disposition: 04:00 <Adilene Benítez - Last Filed: 04/05/19 04:06> <Yaquelin Araujo - Last Filed: 04/05/19 07:44> Clinical Impression: Post-operative pain Disposition: HOME SELF-CARE Condition: Good Instructions (If sedation given, give patient instructions): Parker-en-Y Gastric Bypass (DC) Additional Instructions: Please use medication as discussed. Please follow-up Corine in clinic tomorrow as discussed. Please return to emergency room if the symptoms increase or worsen or for any other concerns. Referrals: Saulo Gudino DO [Primary Care Provider] - 1-2 days Jalen Pool MD [STAFF PHYSICIAN] - 1-2 days Flory Moreno MD [STAFF PHYSICIAN] - 1-2 days
[2019-04-05 02:57] VITALS: BP 125/82; PULSE 55; RESP 16
[2019-04-05 03:06] LABS: ALT 24 U/L (9-52); AST 54 U/L (14-36); Albumin 4.6 g/dL (3.5-5.0); Alkaline Phosphatase 78 U/L (38-126); Amylase 75 U/L (30-110); Anion Gap 11 mmol/L; Blood Urea Nitrogen 10 mg/dL (7-17); Carbon Dioxide 22 mmol/L (22-30); Chloride 104 mmol/L (98-107); Glucose 86 mg/dL (74-99); Lipase 242 U/L (23-300); Sodium 137 mmol/L (137-145); Total Protein 8.2 g/dL (6.3-8.2)
[2019-04-05 03:07] LABS: Anisocytosis Slight; Basophils # (A) 0.1 k/uL (0-0.2); Basophils % (A) 1 %; Eosinophils # (A) 0.3 k/uL (0-0.7); Eosinophils % (A) 3 %; HCT 42.9 % (34.0-46.0); HGB 14.2 gm/dL (11.4-16.0); Lymphocytes # (A) 2.2 k/uL (1.0-4.8); Lymphocytes % (A) 20 %; MCH 26.8 pg (25.0-35.0); MCHC 33.2 g/dL (31.0-37.0); MCV 80.6 fL (80.0-100.0); Mean Platelet Volume 7.5; Monocytes # (A) 0.5 k/uL (0-1.0); Monocytes % (A) 4 %; Neutrophils # (A) 7.3 k/uL (1.3-7.7); Neutrophils % (A) 70 %; Platelet Count 494 k/uL (150-450); RBC 5.32 m/uL (3.80-5.40); RDW 16.8 % (11.5-15.5); WBC 10.5 k/uL (3.8-10.6)
[2019-04-05 03:38] LABS: Appearance,Urine Cloudy (Clear); Bilirubin,Urine Negative (Negative); Blood,Urine Negative (Negative); Color,Urine Yellow; Glucose,Urine (UA) Negative (Negative); Ketones,Urine 2+ (Negative); Leukocyte Esterase,Urine Negative (Negative); Mucus,Urine Rare /hpf; Nitrite,Urine Negative (Negative); PH, Urine 5.5 (5.0-8.0); Protein,Urine Trace (Negative); RBC,Urine 2 /hpf (0-5); Squamous Epithelial Cell,Urine 32 /hpf (0-4); Urobilinogen,Urine <2.0 mg/dL (<2.0); WBC,Urine 1 /hpf (0-5)
[2019-04-05 03:39] LABS: Specific Gravity,Urine >1.050 (1.001-1.035)
--- NOTE | 2019-04-05 03:43 | CT ---
EXAM: CT Abdomen + Pelvis With Intravenous Contrast CLINICAL HISTORY: Pain Additional history of post op complication Parker y on 03-20-19 pain and nausea TECHNIQUE: Axial computed tomography images of the abdomen + pelvis with intravenous contrast. DLP is 3305 mGy-cm. This CT exam was performed using one or more of the following dose reduction techniques: automated exposure control, adjustment of the mA and/or kV according to patient size, and/or use of iterative reconstruction technique. COMPARISON: Plane film 01/23/13. No other priors. FINDINGS: Mild atelectasis and/or scar at lung bases. Trace pericardial effusion. No cardiomegaly. There is nonspecific edema in the body wall along with more focal areas of fluid, example superficial to the left rectus sheath image 58/201. Suspect these regions of focal fluid are at prior incision and/or port sites. No peripheral rim enhancement. Surgical changes compatible with gastric bypass. Enteric contrast given and seen extending into the gastric pouch and proximal small bowel including through the enteric-enteric anastomosis. No extraluminal spill of enteric contrast seen. No bowel obstruction. Portions of bowel underdistended limiting evaluation for mural thickening. No appendicitis. Diverticulosis without diverticulitis. Cholecystectomy. No evidence for acute pancreatitis or other acute abnormality of the solid viscera. Nonobstructive left renal stone. Low-density liver lesions, largest cyst others too small to characterize. Liver is prominent in size. Cystic left renal lesion. Likely benign cyst. Density difficult to measure given artifact on this exam. Hysterectomy. Left ovarian cyst measuring slightly over 2 cm. Suspected tiny right ovarian follicles. IMPRESSION: Findings compatible with gastric bypass. No bowel obstruction. No spill of enteric contrast seen. Enteric contrast does not extend through the entirety of small bowel but does pass through the gastric pouch and the enteric-enteric anastomosis. There is nonspecific edema in the body wall along with more focal areas of fluid, example superficial to the left rectus sheath image 58/201. Suspect these regions of focal fluid are at prior incision and/or port sites. No peripheral rim enhancement. There is also some skin thickening suggested, example region of patient's pannus. Correlate for any evidence of cellulitis. Nonobstructive left renal stone and other incidental findings, as above.
== END 2019-04-05 04:16 | disposition home or self-care (01) ==
LOC: EC
DX: G89.18 Other acute postprocedural pain (principal); R10.9 Unspecified abdominal pain; J45.909 Unspecified asthma, uncomplicated; G47.30 Sleep apnea, unspecified; Z99.89 Dependence on other enabling machines and devices; F41.9 Anxiety disorder, unspecified; Z87.891 Personal history of nicotine dependence; Z79.51 Long term (current) use of inhaled steroids; Z79.899 Other long term (current) drug therapy; Z98.84 Bariatric surgery status; Z90.49 Acquired absence of other specified parts of digestive tract; Z98.890 Other specified postprocedural states
CPT/HCPCS: 36415; 80053; 82150; 83690; 85025; 81001; 74177; 99284; Q9967

== ENCOUNTER → 2019-04-05 | Outpatient (CLI) | payer BC ==
--- NOTE | 2019-04-05 13:45 | P.PN ---
Subjective Progress Note Date: 04/05/19 HPI: She is less than 4 weeks out. She reports starting pureed diet and had pain at the kidney area. Her pain is better as she ate outside food. ABDOMEN: Soft ASSESSMENT: 1. Morbid obesity 2. Status post gastric bypass PLAN: 1. Recommend drinking warm beverages 2. Avoid eating outside foods 3. Labs reviewed and is good 4. Continue pureed food 5. All labs reviewed and CT scan with left kidney stone found
[2019-04-05 14:00] VITALS: BP 132/59; RESP 14; TEMP 98.8; BMI 53.1
== END | disposition home or self-care (01) ==
LOC: BARWHC3 12:47
PROVIDERS: ATTEND Surgery Plastic and Reconstructive Surgery
DX: Z48.815 Encounter for surgical aftercare following surgery on the digestive system (principal); E66.01 Morbid (severe) obesity due to excess calories; Z98.84 Bariatric surgery status; Z68.43 Body mass index [BMI] 50.0-59.9, adult
CPT/HCPCS: 99211

== ENCOUNTER → 2019-04-18 | Outpatient (CLI) | payer BC ==
[2019-04-18 09:04] LABS: Anisocytosis Slight; HCT 41.4 % (34.0-46.0); HGB 13.2 gm/dL (11.4-16.0); MCH 26.4 pg (25.0-35.0); MCHC 31.9 g/dL (31.0-37.0); MCV 82.6 fL (80.0-100.0); Mean Platelet Volume 8.1; Platelet Count 346 k/uL (150-450); RBC 5.01 m/uL (3.80-5.40); RDW 17.2 % (11.5-15.5); WBC 7.2 k/uL (3.8-10.6)
[2019-04-18 09:09] LABS: Partial Thromboplastin Time 25.2 sec (22.0-30.0); Prothrombin Time 10.3 sec (9.0-12.0)
[2019-04-18 15:54] LABS: Hemoglobin A1C 5.3 % (4.0-6.0)
[2019-04-18 16:36] LABS: Albumin 3.9 g/dL (3.80-4.90); Albumin/Globulin Ratio 1.86 (1.60-3.17); Anion Gap 7.1 mmol/L (4.00-12.00); Calcium 9.4 mg/dL (8.7-10.3); Carbon Dioxide 25.9 mmol/L (21.6-31.8); Globulin 2.1 g/dL (1.6-3.3); LDL Cholesterol,Calculated 127.2 mg/dL (0.0-131.0); Magnesium 1.7 mg/dL (1.5-2.4); Phosphorus 3.5 mg/dL (2.4-5.1); Potassium 3.8 mmol/L (3.5-5.5); Total Bilirubin 0.5 mg/dL (0.3-1.2); VLDL Calculation 23.8 mg/dL (5.00-40.00)
[2019-04-18 16:39] LABS: Iron Saturation 14.65 (12.00-45.00)
[2019-04-18 16:47] LABS: Vitamin D 25 Hydroxy 18.8 ng/mL (30.0-100.0)
[2019-04-18 16:48] LABS: Folate, Serum 9.9 ng/mL
[2019-04-18 16:59] LABS: Parathyroid Hormone Intact 28.8 pg/mL (14.0-72.0)
[2019-04-19 12:53] LABS: Zinc, Serum 78 ug/dL (60-130)
[2019-04-20 06:19] LABS: Vitamin A 38 ug/dL (38-106)
[2019-04-20 09:05] LABS: Vit B1(Thiamine) 50 ug/L (38-122)
== END | disposition home or self-care (01) ==
LOC: LABWHC1 08:15
PROVIDERS: ATTEND Surgery Plastic and Reconstructive Surgery
DX: E66.01 Morbid (severe) obesity due to excess calories (principal); E21.1 Secondary hyperparathyroidism, not elsewhere classified; E89.1 Postprocedural hypoinsulinemia; D50.9 Iron deficiency anemia, unspecified; K90.9 Intestinal malabsorption, unspecified; E55.9 Vitamin D deficiency, unspecified; K76.9 Liver disease, unspecified; N19 Unspecified kidney failure; K50.90 Crohn's disease, unspecified, without complications
CPT/HCPCS: 36415; 80053; 80061; 82306; 82525; 82607; 82728; 82746; 83036; 83540; 83550; 83735; 83970; 84100; 84134; 84255; 84425; 84443; 84590; 84630; 85027; 85610; 85730

== ENCOUNTER → 2019-04-19 | Outpatient (CLI) | payer BC ==
[2019-04-19 13:14] VITALS: BP 136/79; PULSE 63; TEMP 98; BMI 52.1
--- NOTE | 2019-04-19 13:35 | P.PN ---
Subjective Progress Note Date: 04/19/19 HPI: Fixing constipation with fiber of 25 grams daily. No abdominal pain. No fevers or chills. She has lost 35 pounds. No infection. May start Fiber including vitamins. MyFitness pal to make it easier on nutrition. Vitamin D is low. Follow up in 2 months, 3 months post op. Miralax prescribed and off physi shravan restrictions. Objective - Vital Signs Vital signs: Vital Signs Temp 98.0 F 04/19/19 13:12 Pulse 63 04/19/19 13:12 Resp BP 136/79 04/19/19 13:12 Pulse Ox Intake & Output 04/18/19 04/19/19 04/19/19 18:59 06:59 18:59 Weight 155.582 kg
== END | disposition home or self-care (01) ==
LOC: BARWHC3 12:45
PROVIDERS: ATTEND Surgery Plastic and Reconstructive Surgery
DX: E66.01 Morbid (severe) obesity due to excess calories (principal); Z68.43 Body mass index [BMI] 50.0-59.9, adult
CPT/HCPCS: 97803; 99211

== ENCOUNTER → 2019-06-21 | Outpatient (CLI) | payer BC ==
[2019-06-21 14:09] VITALS: BP 135/82; PULSE 70; TEMP 98.2; BMI 46.3
--- NOTE | 2019-06-21 14:11 | P.PN ---
Subjective Progress Note Date: 06/21/19 HPI: She was 403 pounds highest. She has lost 98 pounds. She is 3 months out and lost 70+ pounds. Apples and meats gives her a stomach ache. No GERD. No dysphagia. ABDOMEN: No hernia ASSESSMENT: 1. Morbid obesity PLAN: 1. Labs are due for 3 months. Objective - Vital Signs Vital signs: Intake & Output 06/20/19 06/21/19 06/21/19 18:59 06:59 18:59 Weight 138.346 kg
== END ==
LOC: BARWHC3 12:52
PROVIDERS: ATTEND Surgery Plastic and Reconstructive Surgery
DX: E66.01 Morbid (severe) obesity due to excess calories (principal); Z68.42 Body mass index [BMI] 45.0-49.9, adult
CPT/HCPCS: 97803; 99211

== ENCOUNTER → 2019-08-17 | Outpatient (CLI) | payer BC ==
[2019-08-17 16:16] LABS: HCT 41.7 % (34.0-46.0); HGB 13.3 gm/dL (11.4-16.0); MCV 93.7 fL (80.0-100.0); Mean Platelet Volume 6.6; Platelet Count 297 k/uL (150-450); RBC 4.44 m/uL (3.80-5.40); RDW 15.2 % (11.5-15.5); WBC 8.1 k/uL (3.8-10.6)
[2019-08-17 16:26] LABS: INR 0.9 (<1.2); Prothrombin Time 10.2 sec (9.0-12.0)
[2019-08-18 01:43] LABS: Iron Saturation 20.29 (12.00-45.00)
[2019-08-18 01:51] LABS: Vitamin D 25 Hydroxy 42.4 ng/mL (30.0-100.0)
[2019-08-18 01:52] LABS: Ferritin 23.2 ng/mL (10.0-291.0)
[2019-08-18 01:56] LABS: Folate, Serum 17.7 ng/mL
[2019-08-18 01:57] LABS: African American GFR (CKD) 122.1 (60.0-200.0); Albumin 4.1 g/dL (3.80-4.90); Albumin/Globulin Ratio 1.78 (1.60-3.17); Anion Gap 12.7 mmol/L (4.00-12.00); BUN/Creat Ratio 11.43 Ratio (12.00-20.00); Calcium 9.4 mg/dL (8.7-10.3); Carbon Dioxide 21.3 mmol/L (21.6-31.8); Chol/HDL Ratio 4.25; Globulin 2.3 g/dL (1.6-3.3); LDL Cholesterol,Calculated 143.8 mg/dL (0.0-131.0); Magnesium 1.9 mg/dL (1.5-2.4); Phosphorus 3.9 mg/dL (2.4-5.1); Potassium 3.8 mmol/L (3.5-5.5); Total Bilirubin 0.4 mg/dL (0.3-1.2); Total Protein 6.4 g/dL (6.2-8.2); VLDL Calculation 28.2 mg/dL (5.00-40.00)
[2019-08-18 02:31] LABS: Hemoglobin A1C 4.8 % (4.0-6.0)
== END | disposition home or self-care (01) ==
LOC: LABWHC1 15:45
PROVIDERS: ATTEND Surgery Plastic and Reconstructive Surgery
DX: E21.1 Secondary hyperparathyroidism, not elsewhere classified (principal); E66.01 Morbid (severe) obesity due to excess calories; E89.1 Postprocedural hypoinsulinemia; D50.9 Iron deficiency anemia, unspecified; K90.9 Intestinal malabsorption, unspecified; E55.9 Vitamin D deficiency, unspecified; K74.1 Hepatic sclerosis; N19 Unspecified kidney failure; K50.90 Crohn's disease, unspecified, without complications
CPT/HCPCS: 36415; 80053; 80061; 82306; 82525; 82607; 82728; 82746; 83036; 83540; 83550; 83735; 83970; 84100; 84134; 84255; 84425; 84443; 84590; 84630; 85027; 85610; 85730

== ENCOUNTER → 2019-09-19 | Outpatient (CLI) | payer BC ==
--- NOTE | 2019-09-21 09:55 | MM ---
Reason for exam: screening (asymptomatic). Last mammogram was performed 2 years and 5 months ago. Physical Findings: A clinical breast exam by your physician is recommended on an annual basis and results should be correlated with mammographic findings. MG Screening Mammo w CAD Bilateral CC and MLO view(s) were taken. Prior study comparison: April 23, 2017, bilateral MG screening mammo w CAD. March 03, 2004, bilateral diagnostic mammogram. There are scattered fibroglandular densities. There is no discrete abnormality. No significant changes when compared with prior studies. ASSESSMENT: Negative, BI-RAD 1 RECOMMENDATION: Routine screening mammogram of both breasts in 1 year.
== END | disposition home or self-care (01) ==
LOC: RADMAMWWP 15:38
PROVIDERS: ATTEND Family Medicine
DX: Z12.31 Encounter for screening mammogram for malignant neoplasm of breast (principal)
CPT/HCPCS: 77067

== ENCOUNTER → 2019-10-11 | Outpatient (CLI) | payer BC ==
[2019-10-11 13:19] VITALS: BP 114/75; PULSE 72; TEMP 98.2; BMI 39.0
--- NOTE | 2019-10-11 14:09 | P.PN ---
Subjective Progress Note Date: 10/11/19 DATE OF SERVICE: 10/11/2019 CHIEF COMPLAINT: Morbid obesity HISTORY OF PRESENT ILLNESS: Kenyatta Reed is a 44-year-old female s/p gastric bypass, 03/20/2019. She is 6 months out and feels very happy. No reports of diffuse abdominal pain. She has an unusual sensation along her diaphragm with activities. No reports of gastroesophageal reflux disease. She is still on medications for her mood. She is on inhalers. She has lost 100+ pounds. She reports her lung doctor is happy for her success including her . She comes in with new localized abdominal discomfort. At height of 5 feet 8 inches, her ideal body weight is 163 pounds. Her highest weight was 405 pounds. She comes in 256 pounds from 304 pounds, 3 months ago. She has lost 48 pounds in 3 months. Her body mass index highest was 61.7. Today her BMI is 39.1. Lifetime weight loss is 149 pounds. Lifetime percent excess weight loss is 61 %. PAST MEDICAL HISTORY: 1. Morbid obesity due to excess calories 2. Body mass index of 61.7, initial 3. Osteoarthritis of the knees. 4. Osteoarthritis of the hips. 5. Osteoarthritis of the lower back. 6. Obstructive sleep apnea. 7. Hypertensive heart disease. 8. Bilateral lower extremities swelling 9. Plantar fasciitis 10. Gastroesophageal reflux disease 11. Asthma 12. Hyperlipidemia 13. Anxiety disorder 14. Chronic obstructive pulmonary disorder 15. Congestive heart failure 16. Depressive disorder PAST SURGICAL HISTORY: 1. section 2. Hysterectomy 3. Tonsillectomy 4. Gastric bypass HOME MEDICATIONS: Home Medications Medication Instructions Recorded Confirmed Montelukast [Singulair] 10 mg PO HS 02/24/16 04/20/19 Budesonide-Formot 160-4.5 Mcg 2 puff INHALATION RT-BID 04/18/18 04/20/19 [Symbicort 160-4.5 Mcg Inhaler] Tiotropium [place] [Spiriva] 2 puff INHALATION RT-DAILY 04/18/18 04/20/19 Beclomethasone Dipropionate [Qvar 2 puff INHALATION RT-BID 09/20/18 04/20/19 80 mcg] FLUoxetine HCL [PROzac] 20 mg PO QAM 03/13/19 04/20/19 Mirabegron [Myrbetriq] 50 mg PO DAILY 03/13/19 04/20/19 buPROPion HCL [Wellbutrin SR] 150 mg PO BID 03/13/19 04/20/19 Previous Rx's Medication Instructions Recorded Bisacodyl [Dulcolax] 5 mg PO DAILY PRN #10 tablet. 03/21/19 HYDROcodone/APAP 7.5-325MG [[place] 1 tab PO Q4H PRN #18 tab 03/22/19 7.5-325] Omeprazole 40 mg PO DAILY #90 capsule. 03/22/19 Polyethylene Glycol 3350 [Miralax] 17 gm PO DAILY #30 packet 04/19/19 ALLERGIES: Denies. SOCIAL HISTORY: Past tobacco use. FAMILY HISTORY: No family history of ulcerative colitis disease or Crohn's disease. Family history of morbid obesity. No lupus in the family. No reports of stomach or esophageal cancer. Family history of diabetes type 2. REVIEW OF ORGAN SYSTEMS: CONSTITUTIONAL: At height of 5 feet 8 inches, her ideal body weight is 163 pounds. Her highest weight was 405 pounds. Her body mass index highest was 61.7. HEENT: Denies any active troubles with vision or hearing. No troubles with swallowing. ENDOCRINE: No diabetes. No hypothyroidism. CARDIOVASCULAR: No reports of palpitations or heart attacks or chest pain. RESPIRATORY: Has daytime somnolence now resolved. No asthma. GI: Denies any bright red blood per rectum. No diarrhea or constipation. Has gastroesophageal reflux disease now resolved MUSCULOSKELETAL: Has lower back pain and joint pain. Has osteoarthritis of the knees. NEURO: No headaches. No seizure disorders. PSYCH: Has depression. No suicidal ideation. RHEUMATOLOGIC: No lupus. No rheumatoid arthritis. HEMATOLOGIC: Denies any abnormal bleeding or bruising. No personal history of DVTs. SKIN: No rash. No skin cancer. PHYSICAL EXAM: VITAL SIGNS: Height 5 foot 8 inches, weight 256 pounds. BMI 39.1 Vital Signs Temp 98.2 F 10/11/19 13:16 Pulse 72 10/11/19 13:16 Resp BP 114/75 10/11/19 13:16 Pulse Ox GENERAL: Well-developed in no acute distress. HEENT: No scleral icterus. Extraocular movements grossly intact. Hears conversational speech. No nasal drainage. NECK: Supple without lymphadenopathy. CHEST: Nonlabored respirations with equal bilateral excursions. CARDIOVASCULAR: Regular rate and regular rhythm. Distal 2+ pulses. ABDOMEN: Obese, soft, nontender, nondistended. No hernia MUSCULOSKELETAL: No clubbing, cyanosis. Gross strength 5/5 distal lower extremities. NEURO: No focal or lateralizing signs. Cranial nerves 2 through 12 grossly within normal limits. PSYCH: Appropriate affect. Alert and oriented to person, place and time. SKIN: Good skin turgor. Well perfused. LABS: Reviewed. Cholesterol elevated, Zinc is low. No vitamin deficiency. ASSESSMENT: 1. Morbid obesity due to excess calories 2. Body mass index of 61.7, initial to 39.1 3. Osteoarthritis of the knees. 4. Osteoarthritis of the hips. 5. Osteoarthritis of the lower back. 6. Obstructive sleep apnea. 7. Hypertensive heart disease. 8. Bilateral lower extremities swelling 9. Plantar fasciitis 10. Gastroesophageal reflux disease 11. Asthma 12. Hyperlipidemia 13. Anxiety disorder 14. Chronic obstructive pulmonary disorder 15. Congestive heart failure 16. Depressive disorder 17. Status post gastric bypass 18. Kidney stones 19. Chronic constipation 20. Vitamin D deficiency 21. Status post gastric bypass. 22. Hypercholesterolemia 23. Zinc deficiency 24. Abdominal pain PLAN: 1. Recommend labs for 9 month visit in Dec 2019. 2. Recommend CT abd/pelvis for bowel obstruction or internal hernia 3. Check labs for low vitamin D. Objective - Vital Signs Vital signs: Vital Signs Temp 98.2 F 10/11/19 13:16 Pulse 72 10/11/19 13:16 Resp BP 114/75 10/11/19 13:16 Pulse Ox Intake & Output 10/10/19 10/11/19 10/11/19 18:59 06:59 18:59 Weight 116.573 kg
== END | disposition home or self-care (01) ==
LOC: BARWHC3 12:49
PROVIDERS: ATTEND Surgery Plastic and Reconstructive Surgery
DX: E66.01 Morbid (severe) obesity due to excess calories (principal); Z68.39 Body mass index [BMI] 39.0-39.9, adult; M17.0 Bilateral primary osteoarthritis of knee; M16.0 Bilateral primary osteoarthritis of hip; M47.816 Spondylosis without myelopathy or radiculopathy, lumbar region; G47.33 Obstructive sleep apnea (adult) (pediatric); R22.43 Localized swelling, mass and lump, lower limb, bilateral; M72.2 Plantar fascial fibromatosis; K21.9 Gastro-esophageal reflux disease without esophagitis; J44.9 Chronic obstructive pulmonary disease, unspecified; E78.5 Hyperlipidemia, unspecified; F41.9 Anxiety disorder, unspecified; I50.9 Heart failure, unspecified; I11.0 Hypertensive heart disease with heart failure; F32.9 Major depressive disorder, single episode, unspecified; N20.0 Calculus of kidney; K59.09 Other constipation; E55.9 Vitamin D deficiency, unspecified; E78.00 Pure hypercholesterolemia, unspecified; R10.9 Unspecified abdominal pain; E60 Dietary zinc deficiency; Z87.891 Personal history of nicotine dependence; Z98.84 Bariatric surgery status
CPT/HCPCS: 99211

== ENCOUNTER → 2019-11-11 | Outpatient (CLI) | payer BC ==
--- NOTE | 2019-11-11 12:05 | CT ---
EXAMINATION TYPE: CT abdomen pelvis w con DATE OF EXAM: 11/11/2019 HISTORY: Diverticulitis. Hiatal hernia. Epigastric discomfort. History of gastric bypass surgery. CT DLP: 1969mGycm Automated Exposure Control for Dose Reduction was Utilized. CONTRAST: CT scan of the abdomen and pelvis is performed with IV Contrast, patient injected with 100 mL of Isov ue 300. COMPARISON: CT abdomen and pelvis April 05, 2019 FINDINGS: LUNG BASES: Small to tiny pericardial effusion inferiorly is stable. LIVER/GB: Simple appearing 2.0 cm thin-walled cyst laterally right hepatic lobe axial image 19 with a dditional subcentimeter hypodense lesions presumed benign scattered throughout the left hepatic lobe. Multiple cholecystectomy clips. No significant change from prior. PANCREAS: No significant abnormality is seen. SPLEEN: No significant abnormality is seen. ADRENALS: No significant abnormality is seen. KIDNEYS: Simple appearing roughly 2.0 cm thin-walled cyst left kidney posteriorly mid to lower pole l evel image 41 series 7. Stable nonobstructing 5 mm calculus left kidney axial image 40. BOWEL: Oral contrast only reaches level of right colon. No suspicious small or large bowel dilatation . Surgical changes epigastric region from gastric bypass procedure are redemonstrated. Some redundanc y of the sigmoid colon. Suboptimal evaluation due to poor distention mid to distal sigmoid colon. No significant diverticulosis or acute diverticulitis. UTERUS/ADNEXA: Uterus surgically absent. Remnant normal size ovaries noted in the pelvis. LYMPH NODES: No greater than 1cm abdominal or pelvic lymph nodes are appreciated. OSSEOUS STRUCTURES: Multilevel spurring in the spine. Some facet arthropathy lower lumbar levels. OTHER: No significant additional abnormality is seen. IMPRESSION: No significant new or acute finding is seen to account for patient's clinical symptoms.
== END | disposition home or self-care (01) ==
LOC: RADCTMAIN 09:09
PROVIDERS: ATTEND Surgery Plastic and Reconstructive Surgery
DX: R10.13 Epigastric pain (principal)
CPT/HCPCS: 74177; Q9967 ×2

== ENCOUNTER → 2020-01-10 | Outpatient (CLI) | payer BC ==
[2020-01-10 14:21] VITALS: BP 127/89; PULSE 61; RESP 16; TEMP 98.1; BMI 35.4
[2020-01-10 16:39] LABS: HCT 43.3 % (34.0-46.0); HGB 14.5 gm/dL (11.4-16.0); MCH 31.4 pg (25.0-35.0); MCHC 33.5 g/dL (31.0-37.0); MCV 93.5 fL (80.0-100.0); Mean Platelet Volume 10.1; Platelet Count 342 k/uL (150-450); RBC 4.63 m/uL (3.80-5.40); RDW 12.8 % (11.5-15.5); WBC 8.7 k/uL (3.8-10.6)
--- NOTE | 2020-01-10 16:56 | P.PN ---
Progress Note - Text Progress Note Date: 01/10/20 Patient not seen due to cancellation from emergency surgery
[2020-01-10 17:01] LABS: Partial Thromboplastin Time 26.1 sec (22.0-30.0); Prothrombin Time 10.1 sec (9.0-12.0)
[2020-01-10 23:46] LABS: % Iron Saturation 25.45 (12.00-45.00); African American GFR (CKD) 122.1 (60.0-200.0); Albumin 4.2 g/dL (3.80-4.90); Albumin/Globulin Ratio 2.1 (1.60-3.17); Anion Gap 9.7 mmol/L (4.00-12.00); BUN/Creat Ratio 12.86 Ratio (12.00-20.00); Calcium 9.5 mg/dL (8.7-10.3); Carbon Dioxide 28.3 mmol/L (21.6-31.8); Chol/HDL Ratio 4.37; Magnesium 1.8 mg/dL (1.5-2.4); Non-African American GFR(CKD) 105.4 (60.0-200.0); Phosphorus 4.1 mg/dL (2.4-5.1); Potassium 4.4 mmol/L (3.5-5.5); Total Bilirubin 0.4 mg/dL (0.3-1.2); Total Protein 6.2 g/dL (6.2-8.2)
[2020-01-10 23:54] LABS: Ferritin 29.3 ng/mL (10.0-291.0)
[2020-01-10 23:56] LABS: Folate, Serum 8.4 ng/mL
[2020-01-11 01:49] LABS: Hemoglobin A1C 4.8 % (4.0-6.0)
[2020-01-11 15:01] LABS: Vitamin A 33 ug/dL (38-106)
[2020-01-12 06:31] LABS: Vit B1(Thiamine) 65 ug/L (38-122)
[2020-01-12 09:03] LABS: Zinc, Serum 142 ug/dL (60-130)
[2020-01-12 19:25] LABS: Selenium 92 mcg/L (63-160)
== END | disposition home or self-care (01) ==
LOC: BARWHC3 14:00
PROVIDERS: ATTEND Surgery Plastic and Reconstructive Surgery
DX: E66.01 Morbid (severe) obesity due to excess calories (principal); E21.1 Secondary hyperparathyroidism, not elsewhere classified; E89.1 Postprocedural hypoinsulinemia; D50.9 Iron deficiency anemia, unspecified; K90.9 Intestinal malabsorption, unspecified; E55.9 Vitamin D deficiency, unspecified; K74.1 Hepatic sclerosis; N19 Unspecified kidney failure; K50.90 Crohn's disease, unspecified, without complications; Z68.35 Body mass index [BMI] 35.0-35.9, adult
CPT/HCPCS: 80053; 80061; 82306; 82525; 82607; 82728; 82746; 83036; 83540; 83550; 83735; 83970; 84100; 84134; 84255; 84425; 84443; 84590; 84630; 85027; 85610; 85730; 97803; 99211

== ENCOUNTER → 2020-11-22 | Outpatient (CLI) | payer BC ==
[2020-11-22 09:58] LABS: HCT 42.5 % (34.0-46.0); HGB 14.7 gm/dL (11.4-16.0); MCH 31.7 pg (25.0-35.0); MCHC 34.6 g/dL (31.0-37.0); MCV 91.7 fL (80.0-100.0); Mean Platelet Volume 7.5; Platelet Count 301 k/uL (150-450); RBC 4.63 m/uL (3.80-5.40); RDW 12.5 % (11.5-15.5); WBC 5.9 k/uL (3.8-10.6)
[2020-11-22 17:35] LABS: % Iron Saturation 19.02 (12.00-45.00); African American GFR (CKD) 103.2 (60.0-200.0); Albumin 4.2 g/dL (3.80-4.90); Albumin/Globulin Ratio 1.83 (1.60-3.17); Anion Gap 11.5 mmol/L (4.00-12.00); BUN/Creat Ratio 22.5 Ratio (12.00-20.00); Calcium 9.3 mg/dL (8.7-10.3); Carbon Dioxide 23.5 mmol/L (21.6-31.8); Chol/HDL Ratio 3.07; Globulin 2.3 g/dL (1.6-3.3); LDL Cholesterol,Calculated 157.2 mg/dL (0.0-131.0); Phosphorus 3.9 mg/dL (2.4-5.1); Potassium 5.1 mmol/L (3.5-5.5); Total Bilirubin 0.3 mg/dL (0.3-1.2); Total Protein 6.5 g/dL (6.2-8.2); VLDL Calculation 18.8 mg/dL (5.00-40.00)
[2020-11-22 17:50] LABS: Ferritin 18.3 ng/mL (10.0-291.0)
[2020-11-22 18:15] LABS: Folate, Serum 9.9 ng/mL
[2020-11-23 00:28] LABS: INR 0.95 (0.90-1.11); Partial Thromboplastin Time 27.8 sec (23.5-31.0); Prothrombin Time 10.3 sec (9.9-11.9)
[2020-11-25 14:56] LABS: Zinc, Serum 152 ug/dL (60-130)
[2020-11-25 17:48] LABS: Selenium 126 mcg/L (63-160)
[2020-11-26 07:09] LABS: Vitamin A 60 ug/dL (38-106)
[2020-11-26 07:15] LABS: Vit B1(Thiamine) 69 ug/L (38-122)
== END | disposition home or self-care (01) ==
LOC: LABWHC1 08:26
PROVIDERS: ATTEND Surgery Plastic and Reconstructive Surgery
DX: E89.1 Postprocedural hypoinsulinemia (principal); E66.01 Morbid (severe) obesity due to excess calories; D50.8 Other iron deficiency anemias; K90.89 Other intestinal malabsorption; E55.9 Vitamin D deficiency, unspecified; K74.1 Hepatic sclerosis; N19 Unspecified kidney failure; K50.90 Crohn's disease, unspecified, without complications
CPT/HCPCS: 36415; 80053; 80061; 82306; 82525; 82607; 82728; 82746; 83036; 83540; 83550; 83735; 83970; 84100; 84134; 84255; 84425; 84443; 84590; 84630; 85027; 85610; 85730

== ENCOUNTER → 2020-11-27 | Outpatient (CLI) | payer BC ==
[2020-11-27 16:44] VITALS: BP 136/61; PULSE 65; RESP 18; TEMP 98.3; BMI 34.7
--- NOTE | 2020-11-27 17:07 | P.PN ---
Subjective Progress Note Date: 11/27/20 DATE OF SERVICE: 11/27/2020 CHIEF COMPLAINT: Status post gastric bypass HISTORY OF PRESENT ILLNESS: Kenyatta Reed is a 45-year-old female status post gastric bypass, 03/20/2019. She is over 1 year out. She has lost 150+ pounds. She is over 1 years out. She comes in with new moderate panniculitis. She reports occassional abdominal pain relieved with Omeprazole. She cannot eat eggs but is taking protein shakes. She comes in with new panniculitis and moderate skin excess. At height of 5 feet 8 inches, her ideal body weight is 163 pounds. Her highest weight was 405 pounds. She comes in 228 pounds from 256 pounds, over 1 year ago. She has lost 29 pounds in over 1 year. Her body mass index highest was 61.7. Today her BMI is 34.7. Lifetime weight loss is 177 pounds. Lifetime percent excess weight loss is 73 %. PAST MEDICAL HISTORY: 1. Morbid obesity due to excess calories 2. Body mass index of 61.7, initial 3. Osteoarthritis of the knees. 4. Osteoarthritis of the hips. 5. Osteoarthritis of the lower back. 6. Obstructive sleep apnea. 7. Hypertensive heart disease. 8. Bilateral lower extremities swelling 9. Plantar fasciitis 10. Gastroesophageal reflux disease 11. Asthma 12. Hyperlipidemia 13. Anxiety disorder 14. Chronic obstructive pulmonary disorder 15. Congestive heart failure 16. Depressive disorder PAST SURGICAL HISTORY: 1. section 2. Hysterectomy 3. Tonsillectomy 4. Gastric bypass HOME MEDICATIONS: Home Medications Medication Instructions Recorded Confirmed Montelukast [Singulair] 10 mg PO HS 02/24/16 04/20/19 Budesonide-Formot 160-4.5 Mcg 2 puff INHALATION RT-BID 04/18/18 04/20/19 [Symbicort 160-4.5 Mcg Inhaler] Tiotropium [place] [Spiriva] 2 puff INHALATION RT-DAILY 04/18/18 04/20/19 Beclomethasone Dipropionate [Qvar 2 puff INHALATION RT-BID 09/20/18 04/20/19 80 mcg] FLUoxetine HCL [PROzac] 20 mg PO QAM 03/13/19 04/20/19 Mirabegron [Myrbetriq] 50 mg PO DAILY 03/13/19 04/20/19 buPROPion HCL [Wellbutrin SR] 150 mg PO BID 03/13/19 04/20/19 Previous Rx's Medication Instructions Recorded Bisacodyl [Dulcolax] 5 mg PO DAILY PRN #10 tablet. 03/21/19 HYDROcodone/APAP 7.5-325MG [[place] 1 tab PO Q4H PRN #18 tab 03/22/19 7.5-325] Omeprazole 40 mg PO DAILY #90 capsule. 03/22/19 Polyethylene Glycol 3350 [Miralax] 17 gm PO DAILY #30 packet 04/19/19 ALLERGIES: Denies. SOCIAL HISTORY: Past tobacco use. FAMILY HISTORY: No family history of ulcerative colitis disease or Crohn's disease. Family history of morbid obesity. No lupus in the family. No reports of stomach or esophageal cancer. Family history of diabetes type 2. REVIEW OF ORGAN SYSTEMS: CONSTITUTIONAL: At height of 5 feet 8 inches, her ideal body weight is 163 pounds. Her highest weight was 405 pounds. Her body mass index highest was 61.7. HEENT: Denies any active troubles with vision or hearing. No troubles with swallowing. ENDOCRINE: No diabetes. No hypothyroidism. CARDIOVASCULAR: No reports of palpitations or heart attacks or chest pain. RESPIRATORY: Has daytime somnolence now resolved. No asthma. GI: Denies any bright red blood per rectum. No diarrhea or constipation. Has gastroesophageal reflux disease now resolved MUSCULOSKELETAL: Has lower back pain and joint pain. Has osteoarthritis of the knees. NEURO: No headaches. No seizure disorders. PSYCH: Has depression. No suicidal ideation. RHEUMATOLOGIC: No lupus. No rheumatoid arthritis. HEMATOLOGIC: Denies any abnormal bleeding or bruising. No personal history of DVTs. SKIN: No rash. No skin cancer. PHYSICAL EXAM: VITAL SIGNS: Height 5 foot 8 inches, weight 228 pounds. BMI 34.7 Vital Signs Temp 98.3 F 11/27/20 16:28 Pulse 65 11/27/20 16:28 Resp 18 11/27/20 16:28 BP 136/61 11/27/20 16:28 Pulse Ox GENERAL: Well-developed in no acute distress. HEENT: No scleral icterus. Extraocular movements grossly intact. Hears conversational speech. No nasal drainage. NECK: Supple without lymphadenopathy. CHEST: Nonlabored respirations with equal bilateral excursions. CARDIOVASCULAR: Regular rate and regular rhythm. Distal 2+ pulses. ABDOMEN: Obese, soft, nontender, nondistended. Moderate sized pannus over 20 pounds. Grade 4 panniculus. MUSCULOSKELETAL: No clubbing, cyanosis. NEURO: No focal or lateralizing signs. Cranial nerves 2 through 12 grossly within normal limits. PSYCH: Appropriate affect. Alert and oriented to person, place and time. SKIN: Good skin turgor. Well perfused. LABS: Reviewed. Cholesterol elevated 261, Vitamin D low, Zinc elevated. ASSESSMENT: 1. Morbid obesity due to excess calories 2. Body mass index of 61.7, initial to 34.7 3. Osteoarthritis of the knees. 4. Osteoarthritis of the hips. 5. Osteoarthritis of the lower back. 6. Obstructive sleep apnea. 7. Hypertensive heart disease. 8. Bilateral lower extremities swelling 9. Plantar fasciitis 10. Gastroesophageal reflux disease 11. Asthma 12. Hyperlipidemia 13. Anxiety disorder 14. Chronic obstructive pulmonary disorder 15. Congestive heart failure 16. Depressive disorder 17. Status post gastric bypass 18. Kidney stones 19. Chronic constipation 20. Vitamin D deficiency 21. Status post gastric bypass. 22. Hypercholesterolemia 23. Zinc excess 24. Panniculitis PLAN: 1. Nystatin powder prescribed for moderate panniculitis 2. She has moderate sized pannus with activities of daily living limited with grooming and hygiene. Recommend evaluation for skin removal surgery. 3. Additional body contouring procedures with referral to board certified plastic surgeon discussed. 4. Prescription for Omeprazole 40 mg prescribed with medical reconciliation per formed. 5. Discontinue exogenous source of Zinc. Objective - Vital Signs Vital signs: Vital Signs Temp 98.3 F 11/27/20 16:28 Pulse 65 11/27/20 16:28 Resp 18 11/27/20 16:28 BP 136/61 11/27/20 16:28 Pulse Ox Intake & Output 11/26/20 11/27/20 11/27/20 18:59 06:59 18:59 Weight 103.419 kg
== END | disposition home or self-care (01) ==
LOC: BARWHC3 16:12
PROVIDERS: ATTEND Surgery Plastic and Reconstructive Surgery
DX: E66.01 Morbid (severe) obesity due to excess calories (principal); Z68.44 Body mass index [BMI] 60.0-69.9, adult; M17.0 Bilateral primary osteoarthritis of knee; M16.0 Bilateral primary osteoarthritis of hip; G47.33 Obstructive sleep apnea (adult) (pediatric); M79.89 Other specified soft tissue disorders; I11.0 Hypertensive heart disease with heart failure; M72.2 Plantar fascial fibromatosis; K21.9 Gastro-esophageal reflux disease without esophagitis; J45.909 Unspecified asthma, uncomplicated; E78.5 Hyperlipidemia, unspecified; F41.9 Anxiety disorder, unspecified; J44.9 Chronic obstructive pulmonary disease, unspecified; F32.9 Major depressive disorder, single episode, unspecified; N20.0 Calculus of kidney; K59.09 Other constipation; E55.9 Vitamin D deficiency, unspecified; E78.00 Pure hypercholesterolemia, unspecified; Z79.3 Long term (current) use of hormonal contraceptives; M79.3 Panniculitis, unspecified; Z98.84 Bariatric surgery status; Z79.891 Long term (current) use of opiate analgesic; Z79.899 Other long term (current) drug therapy; Z79.51 Long term (current) use of inhaled steroids; Z90.710 Acquired absence of both cervix and uterus
CPT/HCPCS: 99211

== ENCOUNTER → 2022-02-13 | Outpatient (CLI) | payer BC ==
--- NOTE | 2022-02-16 10:16 | MM ---
Reason for exam: screening (asymptomatic). Last mammogram was performed 2 years and 5 months ago. Physical Findings: A clinical breast exam by your physician is recommended on an annual basis and results should be correlated with mammographic findings. MG Screening Mammo w CAD Bilateral CC and MLO view(s) were taken. Prior study comparison: September 19, 2019, bilateral MG screening mammo w CAD. April 23, 2017, bilateral MG screening mammo w CAD. There are scattered fibroglandular densities. There is no discrete abnormality. ASSESSMENT: Negative, BI-RAD 1 RECOMMENDATION: Routine screening mammogram of both breasts in 1 year.
== END | disposition home or self-care (01) ==
LOC: RADMAMWWP 09:54
PROVIDERS: ATTEND Family Medicine
DX: Z12.31 Encounter for screening mammogram for malignant neoplasm of breast (principal)
CPT/HCPCS: 77067

== ENCOUNTER → 2022-09-02 | Outpatient (CLI) | payer BC ==
--- NOTE | 2022-09-02 15:54 | P.HPBAR ---
Bariatric H&P - History & Physicial H&P Date: 09/02/22 History & Physicial: Visit/CC: Patient initial contact: Initial weight: 183.841 kg Initial weight in pounds: Height: Initial BMI: Last weight: Current weight: Current weight in pounds: Current BMI: [place] body weight (based on NIH guidelines): Excess body weight loss: The patient is a 47 year-old F who presents for Bariatric Assessment. She became menopausal and had weight gain with depressant medications. She got up to 303 pounds and now down to 281 pounds. She was looking at her portion sizes. She reports anxiety. She has maintained 100+ pounds. No abdominal pain. She reports constipation. No dysphagia. Recommend check labs. Past Medical History Past Medical History: Asthma, GERD/Reflux, Hyperlipidemia, Sleep Apnea/CPAP/BIPAP Additional Past Medical History / Comment(s): seeing slip cover cutter for "random, quick stabbing chest pain;" patient states that she believes slip cover cutter, Dr. Williamson, is leaning toward believing that these pains are asthma related, uses cpap,"bladder issues" History of Any Multi-Drug Resistant Organisms: None Reported Past Surgical History: Bariatric Surgery, Section, Cholecystectomy, Hysterectomy, Orthopedic Surgery, Tonsillectomy Additional Past Surgical History / Comment(s): plantar faciitis-lengthened tendon, diverticulum removed, D&C, gastric bypass -05-03 Past Anesthesia/Blood Transfusion Reactions: Motion Sickness, Postoperative Nausea & Vomiting (PONV) Additional Past Anesthesia/Blood Transfusion Reaction / Comm: Patient states she has had 2 episodes of "spinal headaches" following 2 separate epidurals. No history of blood transfusion to date Past Psychological History: Anxiety Smoking Status: Former smoker Past Alcohol Use History: None Reported Additional Past Alcohol Use History / Comment(s): smoked 30 years 1 ppd quit 2014 Past Drug Use History: None Reported - Past Family History Father Family Medical History: Hypertension, Renal Disease Additional Family Medical History / Comment(s): at age 67 from hypertensive damage to organs Mother Family Medical History: Hypertension Additional Family Medical History / Comment(s): at age 69. Sister(s) Family Medical History: Myocardial Infarction ([place]) Additional Family Medical History / Comment(s): Alcoholism, at age 57 from " maker" heart attack. Brother(s) Family Medical History: Coronary Artery Disease (CAD) Additional Family Medical History / Comment(s): Alcoholism, drug addiction, carotid artery clogged 100% and 90% at age 58. Bariatric Checklist Checklist: Plan: Checklist: EGD: 1. Hiatal hernia: 2. H. Pylori: HgbA1c: Vitamin D: Smoking: Former smoker Primary care physician referral: marnie Gudino Psychiatry clearance: Cardiology clearance: Sleep study: Diet journal: VTE risk score: VTE risk level: Rehab needs at discharge:
--- NOTE | 2022-09-02 15:54 | P.HPBAR ---
Bariatric H&P - History & Physicial H&P Date: 09/02/22 History & Physicial: Visit/CC: Patient initial contact: Initial weight: 183.841 kg Initial weight in pounds: Height: Initial BMI: Last weight: Current weight: Current weight in pounds: Current BMI: [place] body weight (based on NIH guidelines): Excess body weight loss: The patient is a 47 year-old F who presents for Bariatric Assessment. She became menopausal and had weight gain with depressant medications. She got up to 303 pounds and now down to 281 pounds. She was looking at her portion sizes. She reports anxiety. She has maintained 100+ pounds. No abdominal pain. She reports constipation. No dysphagia. Recommend check labs. Past Medical History Past Medical History: Asthma, GERD/Reflux, Hyperlipidemia, Sleep Apnea/CPAP/BIPAP Additional Past Medical History / Comment(s): seeing wastewater project engineer for "random, quick stabbing chest pain;" patient states that she believes wastewater project engineer, Dr. Williamson, is leaning toward believing that these pains are asthma related, uses cpap,"bladder issues" History of Any Multi-Drug Resistant Organisms: None Reported Past Surgical History: Bariatric Surgery, Section, Cholecystectomy, Hysterectomy, Orthopedic Surgery, Tonsillectomy Additional Past Surgical History / Comment(s): plantar faciitis-lengthened tendon, diverticulum removed, D&C, gastric bypass -05-03 Past Anesthesia/Blood Transfusion Reactions: Motion Sickness, Postoperative Nausea & Vomiting (PONV) Additional Past Anesthesia/Blood Transfusion Reaction / Comm: Patient states she has had 2 episodes of "spinal headaches" following 2 separate epidurals. No history of blood transfusion to date Past Psychological History: Anxiety Smoking Status: Former smoker Past Alcohol Use History: None Reported Additional Past Alcohol Use History / Comment(s): smoked 30 years 1 ppd quit 2014 Past Drug Use History: None Reported - Past Family History Father Family Medical History: Hypertension, Renal Disease Additional Family Medical History / Comment(s): at age 67 from hypertensive damage to organs Mother Family Medical History: Hypertension Additional Family Medical History / Comment(s): at age 69. Sister(s) Family Medical History: Myocardial Infarction (CO) Additional Family Medical History / Comment(s): Alcoholism, at age 57 from " maker" heart attack. Brother(s) Family Medical History: Coronary Artery Disease (CAD) Additional Family Medical History / Comment(s): Alcoholism, drug addiction, carotid artery clogged 100% and 90% at age 58. Bariatric Checklist Checklist: Plan: Checklist: EGD: 1. Hiatal hernia: 2. H. Pylori: HgbA1c: Vitamin D: Smoking: Former smoker Primary care physician referral: marnie Gudino Psychiatry clearance: Cardiology clearance: Sleep study: Diet journal: VTE risk score: VTE risk level: Rehab needs at discharge:
[2022-09-02 16:20] VITALS: BP 146/88; PULSE 80; RESP 16; TEMP 98; BMI 42.7
[2022-09-02 17:16] LABS: HCT 38.9 % (34.0-46.0); HGB 13.4 gm/dL (11.4-16.0); MCH 29.3 pg (25.0-35.0); MCHC 34.4 g/dL (31.0-37.0); MCV 85.3 fL (80.0-100.0); Mean Platelet Volume 8.2; Platelet Count 350 k/uL (150-450); RBC 4.56 m/uL (3.80-5.40); RDW 13.4 % (11.5-15.5); WBC 5.8 k/uL (3.8-10.6)
[2022-09-02 17:27] LABS: INR 0.9 (<1.2); Prothrombin Time 10.3 sec (9.0-12.0)
[2022-09-03 00:09] LABS: % Iron Saturation 11.02 (12.00-45.00); ALT 11 U/L (8-44); AST 21 U/L (13-35); African American GFR (CKD) 103.3 (60.0-200.0); Albumin 4.4 g/dL (3.8-4.9); Albumin/Globulin Ratio 1.69 (1.60-3.17); Alkaline Phosphatase 99 U/L (41-126); BUN/Creat Ratio 13.42 Ratio (12.00-20.00); Blood Urea Nitrogen 10.6 mg/dL (9.0-27.0); Calcium 9.8 mg/dL (8.7-10.3); Carbon Dioxide 26.3 mmol/L (20.0-27.5); Chloride 101 mmol/L (96-109); Ferritin 12.5 ng/mL (10.0-291.0); Globulin 2.6 g/dL (1.6-3.3); Glucose 84 mg/dL (70-110); Iron 47 ug/dL (50-170); Magnesium 2.3 mg/dL (1.5-2.4); Non-African American GFR(CKD) 89.1 (60.0-200.0); Potassium 4.8 mmol/L (3.5-5.5); Sodium 140 mmol/L (135-145); Total Iron Binding Capacity 428 ug/dL (228-460)
[2022-09-03 00:24] LABS: Chol/HDL Ratio 3.53 Ratio; LDL Cholesterol,Calculated 163.7 mg/dL (0.0-131.0); Prealbumin 24.2 mg/dL (18.0-42.0); VLDL Calculation 19.66 mg/dL (5.00-40.00)
[2022-09-03 12:37] LABS: Zinc, Serum 68 ug/dL (60-130)
[2022-09-04 06:27] LABS: Vitamin A 65 ug/dL (38-106)
== END ==
LOC: BARWHC3 15:11
PROVIDERS: ATTEND Surgery Plastic and Reconstructive Surgery
DX: D50.9 Iron deficiency anemia, unspecified (principal); K90.89 Other intestinal malabsorption; E55.9 Vitamin D deficiency, unspecified; K74.1 Hepatic sclerosis; N19 Unspecified kidney failure; T56.894A Toxic effect of other metals, undetermined, initial encounter; K50.90 Crohn's disease, unspecified, without complications; Z87.891 Personal history of nicotine dependence; E66.01 Morbid (severe) obesity due to excess calories; Z68.41 Body mass index [BMI] 40.0-44.9, adult
CPT/HCPCS: 36415; 80053; 80061; 82306; 82525; 82607; 82728; 82746; 83036; 83540; 83550; 83735; 83970; 84100; 84134; 84255; 84425; 84443; 84590; 84630; 85027; 85610; 85730; 99211

== ENCOUNTER → 2022-12-23 | Outpatient (CLI) | payer BC ==
[2022-12-23 15:46] VITALS: BP 138/81; PULSE 68; TEMP 98; BMI 39.6
--- NOTE | 2022-12-23 16:33 | P.BASOAP ---
Subjective Progress Note Date: 12/23/22 She has lost 9 pounds in 1 year. She was 228 up 281. She is now down to 261. She reports 60 grams of protein daily. She gas gastric bypass. She reports difficulty being consistent with her diet. SHe has constipation. Lactulose prescribe. Labs today. No belly pain. Objective - Vital Signs Vital signs: Vital Signs Temp 98 F 12/23/22 15:43 Pulse 68 12/23/22 15:43 Resp BP 138/81 12/23/22 15:43 Pulse Ox FiO2 Intake & Output 12/22/22 12/23/22 12/23/22 18:59 06:59 18:59 Weight 118.388 kg Assessment/Plan Plan: Date: 12/23/22 Initial Weight: 183.841 kg Initial BMI: 61.6 Current Weight: 118.388 kg Current BMI: 39.6 Type of Surgery: Total Volume in Band: Previous Volume: Volume Removed: Volume Added: Band Size:
== END ==
LOC: BARWHC3 15:03
PROVIDERS: ATTEND Surgery Plastic and Reconstructive Surgery
DX: E66.01 Morbid (severe) obesity due to excess calories (principal); Z53.9 Procedure and treatment not carried out, unspecified reason
CPT/HCPCS: 99211

== ENCOUNTER → 2023-03-22 | Outpatient (CLI) | payer BC ==
--- NOTE | 2023-03-23 16:02 | MM ---
Reason for Exam: Screening (asymptomatic). Last mammogram was performed 1 year(s) and 1 month(s) ago. Patient History: Menarche at age 13. First Full-Term at age 25. Hysterectomy at age 40. Risk Values: Alice 5 year model risk: 1.0%. NCI Lifetime model risk: 10.3%. Prior Study Comparison: 04/23/2017 Bilateral Screening Mammogram, [facility]. 09/19/2019 Bilateral Screening Mammogram, [facility]. 02/13/2022 Bilateral Screening Mammogram, [facility]. Tissue Density: The breast tissue is almost entirely fat. Findings: Analyzed By CAD. Pattern appears symmetrical and stable. Chronic nodularity is in the upper posterior left breast. No significant interval changes are evident. No suspicious groups of microcalcifications, spiculated or lobular masses, architectural distortion or other secondary signs of malignancy are mammographically apparent. Overall Assessment: Benign, BI-RAD 2 Management: Screening Mammogram of both breasts in 1 year. A negative mammogram report should not preclude additional follow up of suspicious palpable abnormalities. Patient should continue monthly self breast exam. A clinical breast exam by your physician is recommended on an annual basis and results should be correlated with mammographic findings. Electronically signed and approved by: Nicola Solomon D.O. Radiologis
== END | disposition home or self-care (01) ==
LOC: RADMAMWWP 16:25
PROVIDERS: ATTEND Family Medicine
DX: Z12.31 Encounter for screening mammogram for malignant neoplasm of breast (principal)
CPT/HCPCS: 77067

== ENCOUNTER → 2024-05-16 | Outpatient (CLI) | payer BC ==
--- NOTE | 2024-05-19 07:53 | MM ---
Reason for Exam: Screening (asymptomatic). Last mammogram was performed 1 year(s) and 2 month(s) ago. Patient History: Menarche at age 13. First Full-Term at age 25. Hysterectomy at age 40. Risk Values: Alice 5 year model risk: 1.0%. NCI Lifetime model risk: 10.2%. Prior Study Comparison: 09/19/2019 Bilateral Screening Mammogram, [facility]. 02/13/2022 Bilateral Screening Mammogram, [facility]. 03/22/2023 Bilateral MG screening mammo w CAD, [facility]. Tissue Density: There are scattered areas of fibroglandular density. Findings: Analyzed By CAD. There is no suspicious group of microcalcifications or new suspicious mass in either breast. Benign appearing lymph node left axilla stable. Punctate benign-appearing calcifications. Overall Assessment: Benign, BI-RAD 2 Management: Screening Mammogram of both breasts in 1 year. . Patient should continue monthly self-breast exams. A clinical breast exam by your physician is recommended on an annual basis. This exam should not preclude additional follow-up of suspicious palpable abnormalities. Note on Alice scores and lifetime risk: 1. A Alice score greater than 3% is considered moderate risk. If this is the case, consider specialist referral to assess eligibility for a risk reducing agent. 2. If overall lifetime risk for the development of breast cancer is 20% or higher, the patient may qualify for future screening with alternating mammogram and breast MRI. Electronically signed and approved by: Aldair Garcia M.D. Radiologis
== END | disposition home or self-care (01) ==
LOC: RADMAMWWP 07:42
PROVIDERS: ATTEND Family Medicine
DX: Z12.31 Encounter for screening mammogram for malignant neoplasm of breast (principal)
CPT/HCPCS: 77063; 77067

== ENCOUNTER → 2025-03-31 | Outpatient (CLI) | payer BC ==
[2025-03-31 13:11] LABS: Basophils # (A) 0.07 X 10*3/uL (0.00-0.10); Basophils % (A) 1.3 %; Eosinophils % (A) 3.7 %; HGB 14.2 g/dL (12.0-15.0); Lymphocytes # (A) 1.82 X 10*3/uL (0.90-5.00); Lymphocytes % (A) 33.9 %; MCH 30.1 pg (27.0-32.0); MCHC 33.8 g/dL (32.0-37.0); Mean Platelet Volume 10.2 FL (9.5-12.2); Monocytes # (A) 0.39 X 10*3/uL (0.20-1.00); Monocytes % (A) 7.3 %; NRBC Per 100 WBC 0 X 10*3/uL (0.00-0.01); Neutrophils # (A) 2.88 X 10*3/uL (1.80-7.70); Neutrophils % (A) 53.6 %; Platelet Count 371 X 10*3/uL (140-440); RBC 4.72 X 10*6/uL (4.10-5.20); RDW 11.9 % (11.5-14.5); WBC 5.37 X 10*3/uL (4.50-10.00)
[2025-03-31 13:28] LABS: ALT 9 U/L (8-44); AST 21 U/L (13-35); Albumin 4.2 g/dL (3.8-4.9); Albumin/Globulin Ratio 1.68 Ratio (1.60-3.17); Alkaline Phosphatase 103 U/L (41-126); BUN/Creat Ratio 15.88 Ratio (12.00-20.00); Blood Urea Nitrogen 12.7 mg/dL (9.0-27.0); Calcium 9.7 mg/dL (8.7-10.3); Carbon Dioxide 24.8 mmol/L (21.6-31.8); Chloride 105 mmol/L (96-109); Chol/HDL Ratio 2.36 Ratio; Globulin 2.5 g/dL (1.6-3.3); Glucose 90 mg/dL (70-110); LDL Cholesterol,Calculated 111.4 mg/dL (0.0-131.0); Potassium 4.2 mmol/L (3.5-5.5); Sodium 142 mmol/L (135-145); T4, Free (Free Thyroxine) 1.09 ng/dL (0.80-1.80); Testosterone <10.00 ng/dL (9.01-47.94); Total Bilirubin 0.4 mg/dL (0.3-1.2); Total Protein 6.7 g/dL (6.2-8.2)
[2025-03-31 14:33] LABS: Progesterone 0.1 ng/mL
== END | disposition home or self-care (01) ==
LOC: LABWHC1 09:45
PROVIDERS: ATTEND Family Medicine
DX: R63.5 Abnormal weight gain (principal); Z79.899 Other long term (current) drug therapy
CPT/HCPCS: 36415; 80053; 80061; 82671; 83036; 83525; 84144; 84403; 84439; 84443; 84481; 85025